=== PATIENT | male | born 1970 | race Two or more races ===

== ENCOUNTER 2020-09-30 07:25 | Inpatient (IN) | payer MEDICAID, OTHER ==
[2020-09-30] VITALS (27 sets, daily range): BP systolic 84–171; BP diastolic 49–105
[~2020-09-30] VITALS: Ht 157.5 cm; Wt 66.8 kg
--- NOTE | 2020-09-30 07:25 | NUR ---
PT [facility]AY [facility] FROM [facility] C/O LOW BP 2 HRS ON TO DIALYSIS. PT IS AAOX3 ROMANIAN SPEAKING ONLY, NOT IN RESPIRATORY DISTRESS, HOOKED TO HASHER OPERATOR, KEPT RESTED AND COMFORTABLE. WILL CONTINUE TO MONITOR.
--- NOTE | 2020-09-30 07:28 | NUR ---
SEEN AND EXAMINED BY .
[2020-09-30] MEDS ORDERED: IV NS 0.9% 1,000 ML BAG IV ONE (07:30)
--- NOTE | 2020-09-30 07:40 | NUR ---
IV LINE ESTABLISHED BLOOD DRAWN AND SENT TO LAB.
--- NOTE | 2020-09-30 07:51 | NUR ---
FLASH WELDING MACHINE OPERATOR AT BEDSIDE FOR XRAY.
[2020-09-30 07:53] LABS: BASOPHILS % (AUTO) 0.2 % (0.0-2.0); HEMATOCRIT 26 % (39-51); HEMOGLOBIN 8.2 g/dL (13.5-17.5); LYMPHOCYTES # (AUTO) 0.8 /CMM (0.8-4.8); LYMPHOCYTES % (AUTO) 5.5 % (20.0-44.0); MEAN CORPUSCULAR HGB CONC 31 g/dl (31.0-36.0); MEAN CORPUSCULAR VOLUME 91 fL (80-96); MONOCYTES # (AUTO) 0.6 /CMM (0.1-1.30); MONOCYTES % (AUTO) 4.3 % (2.0-12.0); NEUTROPHILS # (AUTO) 13.2 /CMM (1.8-8.9); PLATELET COUNT (AUTO) 329 /CMM (150-450); RED BLOOD CELL COUNT(AUTO) 2.91 MIL/uL (4.5-6.0); WHITE BLOOD COUNT (AUTO) 14.6 K/uL (4.3-11.0)
[2020-09-30] MEDS ORDERED: CALC0.253 PO (07:58)
[2020-09-30] MEDS ORDERED: PANT40TA49 PO (07:58)
[2020-09-30] MEDS ORDERED: DOXA4TAB3 PO (07:58)
[2020-09-30] MEDS ORDERED: CALC667C6 PO (07:58)
[2020-09-30] MEDS ORDERED: LOSA50TA39 PO (07:58)
[2020-09-30] MEDS ORDERED: AMLO-213 PO (07:58)
[2020-09-30] MEDS ORDERED: PIOG30TA10 PO (07:58)
[2020-09-30 08:26] LABS: ALANINE AMINOTRANSFERASE 633 U/L (12-78); ALBUMIN 2.5 g/dL (3.4-5.0); ALKALINE PHOSPHATASE 484 U/L (46-116); ASPARTATE AMINOTRANSFERASE 1237 U/L (15-37); BILIRUBIN,TOTAL 1.5 mg/dL (0.2-1.0); CALCIUM, SERUM 9.7 mg/dL (8.5-10.1); CARBON DIOXIDE 21 mmol/L (21-32); CHLORIDE 94 mmol/L (98-107); CREATININE 5.8 mg/dL (0.6-1.3); GLUCOSE 160 mg/dL (74-106); SODIUM SERUM 135 mmol/L (136-145); TOTAL PROTEIN, SERUM 8.9 g/dL (6.4-8.2); UREA NITROGEN, BLOOD 58 mg/dL (7-18)
[2020-09-30] MEDS ORDERED: ONDANSETRON HCL/PF 4 MG/2 ML VIAL ONE (08:33)
--- NOTE | 2020-09-30 08:36 | NUR ---
COVID SPECIMEN OBTAINED AND SENT TO LAB.
--- NOTE | 2020-09-30 08:37 | NUR ---
paged epic for Panel admission
--- NOTE | 2020-09-30 08:45 | NUR ---
DREDGE MECHANIC AT BEDSIDE FOR ULTRASOUND.
[2020-09-30] MEDS ORDERED: IV NS 0.9% 1,000 ML IV ONE (09:00)
[2020-09-30] MEDS ORDERED: VANCOMYCIN 1 GM in IV D5W 250 ML IV ONE (09:00)
[2020-09-30] MEDS ORDERED: ONDANSETRON HCL/PF 4 MG/2 ML VIAL IV ONE (09:00)
[2020-09-30] MEDS ORDERED: PIPERACILLIN /TAZOBACTAM 3.375 G in IV D5W 50 ML IV ONE (09:00)
--- NOTE | 2020-09-30 09:28 | NUR ---
room given [id number]
--- NOTE | 2020-09-30 09:29 | NUR ---
room [id number]
--- NOTE | 2020-09-30 09:29 | NUR ---
CALLED ICU FOR REPORT RN NOT AVAILABLE.
--- NOTE | 2020-09-30 09:50 | NUR ---
REPORT GIVEN TO MELI WHITFIELD FOR TRACEY.
[2020-09-30] MEDS ORDERED: PANTOPRAZOLE 40 MG TABLET.DR PO SCH (10:30)
[2020-09-30] MEDS ORDERED: ONDANSETRON HCL/PF 4 MG/2 ML VIAL IVP PRN (10:30)
[2020-09-30] MEDS: HEPARIN SODIUM, PORCINE 5000 UNITS/1 ML VIAL SQ SCH ×2 (10:30→20:27)
[2020-09-30] MEDS ORDERED: IV NS 0.9% 1,000 ML IV PRN (11:00)
--- NOTE | 2020-09-30 11:00 | NUR ---
Patient's report received from Charge Nurse and patient assessed. Admission assessments done . 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 Patient started on 100 ml/hour IV fluids per Md order
[2020-09-30] MEDS: PANTOPRAZOLE 40 MG VIAL IV SCH (11:18)
--- NOTE | 2020-09-30 11:25 | NUR ---
Patient was taken to OR by staff.Patient in stable condition. Teleb box and 02 used during transfer.
[2020-09-30] MEDS ORDERED: IV SET PRIMARY PUMP SET 1 EA INFUS.SET MC ONE (11:39)
[2020-09-30] MEDS ORDERED: IV NS 0.9% 1,000 ML ONE (11:39)
[2020-09-30] MEDS ORDERED: LIDOCAINE HCL/MPF 1% 30 ML VIAL IJ ONE (12:03)
[2020-09-30] MEDS ORDERED: FENTANYL PF 100MCG/2ML AMPUL ONE (12:21)
[2020-09-30] MEDS ORDERED: VANCOMYCIN 500 MG in IV D5W 100 ML IV PRN (13:00)
--- NOTE | 2020-09-30 13:28 | NUR ---
Patient cameback from Pericardiocentisis. Per report patient had 700 cc of bodily fluid removed and sample sent to lab. Patient assessed and noted with drain . Patient stated he feels better.Vitals recorded. Will continue to monitor.No c/o sob, no s/s of respiratory distress. Addendum: 09/30/20 at 1921 by JOSE SALMERON RN patient had 800 cc of output of pericardial fluid.
[2020-09-30] MEDS ORDERED: DEXTROSE 50%-WATER 50 ML DISP.SYRIN IV PRN (13:30)
--- NOTE | 2020-09-30 13:30 | NUR ---
Received order from Dr chavez to d/c iv fluids . Renal diet resumed per MD Pierre orders.
[2020-09-30] MEDS: CALCIUM ACETATE 667 MG TABLET PO SCH (17:11)
[2020-09-30] MEDS: BLOOD SUGAR DIAGNOSTIC 1 EACH STRIP IN SCH ×2 (17:11→21:46)
[2020-09-30] MEDS: PIPERACILLIN /TAZOBACTAM 2.25 G in IV D5W 50 ML IV SCH (17:11)
[2020-09-30] MEDS: DOXAZOSIN MESYLATE (4 MG) 4 MG TABLET PO SCH (17:12)
[2020-09-30] MEDS: INSULIN REGULAR, HUMAN 100 UNIT/ML 3 ML VIAL SQ PRN ×2 (17:13→21:46)
--- NOTE | 2020-09-30 19:19 | NUR ---
HARMONICA MAKER CLOSING NOTES Patient is alert and oriented, no c/o sob or pain. Breathing even and unlabored. On 02 2liters via nc with 02 sat of 100%. Patient's drain flushed with normal saline during shift. Iv site to right hand and right ac noted and patent with saline lock. Patient ate 100% lunch and 100 % dinner. Endorsed to next shift for TRACEY. Bed is in lowest and locked position. Call light with in reach.
[2020-09-30] MEDS: AMLODIPINE BESYLATE 10 MG TABLET PO SCH (20:25)
[2020-09-30] MEDS: ACETAMINOPHEN 325 MG TABLET PO PRN (20:25)
--- NOTE | 2020-09-30 21:28 | NUR ---
RN NOTE RECEIVED PATIENT IN BED, AWAKE ALERT AND ORIENTED X4. ABLE TO MAKE NEEDS KNOWN. NO SOB OR ANY RESPIRATORY DISTRESS. ON O2 2LPM VIA NASAL CANNULA, O2 SAT 100%. TELE MONITOR ON, HR 100'S. COMPLAINED OF RIGHT ARM PAIN, WILL GIVE DUE PRN PAIN MEDICATION. WITH IV ACCESS ON RIGHT HAND #20 AND RIGHT AC #18 PATENT AND INTACT. NOTED WITH LEFT AV FISTULA, DRESSING DRY AND INTACT. BED LOCKED AND IN LOWEST POSITION. CALL LIGHT WITHIN REACH. WILL CONTINUE TO MONITOR. Addendum: 09/30/20 at 2151 by SELENE CISNEROS RN INFORMED GERALD TAPE MACHINE TAILER REGARDING PERICARDIAL FLUID RESULT-RARE GRAM POSITIVE COCCI, WITH NO NEW ORDERS AT THIS TIME.
--- NOTE | 2020-09-30 21:47 | NUR ---
BLOOD SUGAR 127, NO COVERAGE GIVEN PER MD'S SLIDING SCALE ORDER.
[2020-10-01] VITALS (43 sets, daily range): BP systolic 65–121; BP diastolic 33–77
[2020-10-01] MEDS: PIPERACILLIN /TAZOBACTAM 2.25 G in IV D5W 50 ML IV SCH ×2 (00:18→08:36)
[2020-10-01 04:55] LABS: BASOPHILS % (AUTO) 0.1 % (0.0-2.0); HEMATOCRIT 28 % (39-51); HEMOGLOBIN 8.8 g/dL (13.5-17.5); LYMPHOCYTES # (AUTO) 0.9 /CMM (0.8-4.8); LYMPHOCYTES % (AUTO) 6.7 % (20.0-44.0); MEAN CORPUSCULAR HGB CONC 31 g/dl (31.0-36.0); MEAN CORPUSCULAR VOLUME 92 fL (80-96); MONOCYTES # (AUTO) 0.4 /CMM (0.1-1.30); MONOCYTES % (AUTO) 3.2 % (2.0-12.0); NEUTROPHILS # (AUTO) 11.6 /CMM (1.8-8.9); PLATELET COUNT (AUTO) 331 /CMM (150-450); RED BLOOD CELL COUNT(AUTO) 3.07 MIL/uL (4.5-6.0); WHITE BLOOD COUNT (AUTO) 12.9 K/uL (4.3-11.0)
[2020-10-01 05:35] LABS: ALBUMIN 1.9 g/dL (3.4-5.0); BILIRUBIN,TOTAL 0.9 mg/dL (0.2-1.0); CREATININE 7.1 mg/dL (0.6-1.3); MAGNESIUM 2.1 mg/dL (1.8-2.4); POTASSIUM 4.6 mmol/L (3.5-5.1); TOTAL PROTEIN, SERUM 7.1 g/dL (6.4-8.2)
[2020-10-01 05:38] LABS: ALBUMIN 1.9 g/dL (3.4-5.0); BILIRUBIN,DIRECT 0.6 mg/dL (0.0-0.2); BILIRUBIN,TOTAL 0.9 mg/dL (0.2-1.0); TOTAL PROTEIN, SERUM 7.1 g/dL (6.4-8.2)
[2020-10-01 05:54] LABS: PHOSPHORUS 8.1 mg/dL (2.5-4.9)
--- NOTE | 2020-10-01 06:41 | NUR ---
RN NOTE PATIENT IN BED SLEEPING, EASILY AROUSED. A/OX4. ABLE TO MAKE NEEDS KNOWN. NO SOB. ON O2 2LPM VIA NASAL CANNULA, O2 SAT 97%. WITH IV ACCESS ON RIGHT HAND #20 AND RIGHT AC #18 PATENT AND INTACT. NOTED WITH LEFT AV FISTULA, DRESSING DRY AND INTACT. ALL DUE MEDS GIVEN ORDERED. INFORMED GERALD LINING SETTER OF CRITICAL LAB PHOS 8.1 WITH NO NEW ORDERS AT THIS TIME. BED LOCKED AND IN LOWEST POSITION. CALL LIGHT WITHIN REACH. WILL ENDORSE TO AM SHIFT.
--- NOTE | 2020-10-01 07:00 | NUR ---
RN- ICU 0700- BEDSIDE REPORT TAKEN FROM [facility] NURSE NASH GARRISON. PT AWAKE, ALERT ORIENTED X4, FOLLOWS COMMANDS AND RESTING COMFORTABLE IN BED. PT ON 2L N/C TOLERATING WELL. LUNG SOUNDS CLEAR. PT AFIB ON THE MONITOR HR 90-115, PT AFEBRILE. BOWEL SOUNDS PRESENT, ABD SOFT NONDISTENDED. PT MOVES BUE AND BLE 5/5. SKIN CHECK DONE, SKIN INTACT, NO WOUNDS NOTED. BUE AND BLE PULSES PRESENT. PT CONTINENT, VOIDS IN URINAL. ALL PIV SITES ASSESSED. PT HEP LOCKED. VITALS STABLE. SAFETY MEAURES IN PLACE. NO SIGNS OF ACUTE DISTRESS AT THIS TIME. WILL CONTINUE TO MONITOR. 0754- PT SITTING UP IN BED FEEDING SELF BREAKFAST. PT TOLERATING WELL. NO VISIBLE SIGNS OF ASPIRATION NOTED. WILL CONTINUE TO MONITOR.
[2020-10-01] MEDS: BLOOD SUGAR DIAGNOSTIC 1 EACH STRIP IN SCH ×4 (07:30→21:39)
[2020-10-01] MEDS: PANTOPRAZOLE 40 MG VIAL IV SCH (08:35)
[2020-10-01] MEDS: HEPARIN SODIUM, PORCINE 5000 UNITS/1 ML VIAL SQ SCH ×2 (08:37→20:35)
[2020-10-01] MEDS: CALCITRIOL 0.25 MCG CAPSULE PO SCH (08:37)
[2020-10-01] MEDS: CALCIUM ACETATE 667 MG TABLET PO SCH ×3 (08:37→17:24)
[2020-10-01] MEDS: LOSARTAN POTASSIUM 50 MG TABLET PO SCH (08:38)
[2020-10-01] MEDS: METOPROLOL TARTRATE 25 MG TABLET PO SCH ×3 (10:00→16:59)
[2020-10-01] MEDS: INSULIN REGULAR, HUMAN 100 UNIT/ML 3 ML VIAL SQ PRN ×3 (11:50→21:39)
--- NOTE | 2020-10-01 11:59 | NUR ---
COMPLAINT EVALUATION SUPERVISOR 1158- SPORTS FITNESS AND WELLNESS DIRECTOR AT BEDSIDE DOING STUDY. PT AWAKE, ALERT, ORIENTED AND COOPERATIVE. PT TOLERATING WELL. VITALS STABLE. WILL CONTINUE TO MONITOR.
--- NOTE | 2020-10-01 14:10 | NUR ---
MANAGER ANIMATION 1410- DR AGUILAR MADE AWARE THAT PT HYPOTENSIVE WITH SBP 70-80S SUSTAINED, NEW TELEPHONE ORDER ENTERED FOR 500 ML NS BOLUS X1 PER MD, NO OTHER ORDERS AT THIS TIME. CHARGE NURSE ROSEANN GARRISON AWARE.
--- NOTE | 2020-10-01 14:23 | NUR ---
MAILROOM COORDINATOR 1423- DR DELGADILLO AT BEDSIDE ASSESSING PT AND UPDATED ON PT STATUS. REMOVED ABDOMINAL DRAIN. PT TOLERATED WELL. SITE CLEAN DRY AND INTACT, NO BLEEDING OR OOZING NOTED. WILL CONTINUE TO MONITOR.
[2020-10-01] MEDS ORDERED: IV NS 0.9% 500 ML BAG IV ONE (14:30)
--- NOTE | 2020-10-01 16:47 | NUR ---
PIPE COVERER HELPER 1647- PT BATHED AND CLEANED. SKIN CHECK DONE, NO PRESSURE WOUNDS NOTED. LINEN CHANGE DONE. PT TOLERATED WELL. VITALS STABLE. SAFETY MEASURES IN PLACE. WILL CONTINUE TO MONITOR.
[2020-10-01] MEDS: DOXAZOSIN MESYLATE (4 MG) 4 MG TABLET PO SCH (17:25)
--- NOTE | 2020-10-01 19:14 | NUR ---
STICK WELDER 1913- BEDSIDE REPORT GIVEN TO [facility] NURSE SELENE GARRISON. PT AWAKE, ALERT AND RESTING COMFORTABLE IN BED. PT ON 2 L N/C TOLERATING WELL. ALL LINES TRACED. VITALS STABLE. SAFETY MEASURES IN PLACE. NO SIGNS OF ACUTE DISTRESS AT THIS TIME.
--- NOTE | 2020-10-01 19:24 | NUR ---
RN NOTE RECEIVED PATIENT IN BED, AWAKE ALERT AND ORIENTED X4. ABLE TO MAKE NEEDS KNOWN. NO SOB NOTED. ON O2 2LPM VIA NASAL CANNULA, O2 SAT 96%. TELE MONITOR ON, AFIB CONTROLLED, 100'S. WITH IV ACCESS ON RIGHT HAND #20 AND RIGHT AC #18 PATENT AND INTACT. NOTED WITH LEFT AV FISTULA, DRESSING DRY AND INTACT. BED LOCKED AND IN LOWEST POSITION. CALL LIGHT WITHIN REACH. WILL CONTINUE TO MONITOR.
[2020-10-01] MEDS: AMLODIPINE BESYLATE 10 MG TABLET PO SCH (20:00)
[2020-10-01] MEDS: ACETAMINOPHEN 325 MG TABLET PO PRN (20:32)
--- NOTE | 2020-10-01 20:36 | NUR ---
BLOOD PRESSURE 108/62. NOTIFIED SILVANO MENENDEZ PATIENT WAS HYPOTENSIVE AND RECEIVED NS BOLUS 500 ML IN PREVIOUS SHIFT WITH ORDERS TO HOLD NORVASC MEDICATION AT THIS TIME. WILL CONTINUE TO MONITOR.
--- NOTE | 2020-10-01 21:40 | NUR ---
BLOOD SUGAR 114, NO COVERAGE GIVEN.
[2020-10-02] VITALS (72 sets, daily range): BP systolic 78–154; BP diastolic 49–85
[2020-10-02 04:36] LABS: BASOPHILS % (AUTO) 0.3 % (0.0-2.0); EOSINOPHILS % (AUTO) 0.4 % (0.0-6.0); HEMATOCRIT 27 % (39-51); HEMOGLOBIN 8.7 g/dL (13.5-17.5); LYMPHOCYTES % (AUTO) 8.5 % (20.0-44.0); MEAN CORPUSCULAR HGB CONC 32 g/dl (31.0-36.0); MEAN CORPUSCULAR VOLUME 91 fL (80-96); MONOCYTES # (AUTO) 0.5 /CMM (0.1-1.30); MONOCYTES % (AUTO) 4.2 % (2.0-12.0); NEUTROPHILS # (AUTO) 10.7 /CMM (1.8-8.9); NEUTROPHILS % (AUTO) 86.6 % (43.0-81.0); PLATELET COUNT (AUTO) 374 /CMM (150-450); WHITE BLOOD COUNT (AUTO) 12.3 K/uL (4.3-11.0)
[2020-10-02 04:46] LABS: ALBUMIN 1.7 g/dL (3.4-5.0); BILIRUBIN,DIRECT 0.4 mg/dL (0.0-0.2); BILIRUBIN,TOTAL 0.7 mg/dL (0.2-1.0); CALCIUM, SERUM 8.4 mg/dL (8.5-10.1); POTASSIUM 4.3 mmol/L (3.5-5.1); TOTAL PROTEIN, SERUM 6.6 g/dL (6.4-8.2)
[2020-10-02 04:51] LABS: CREATININE 8.1 mg/dL (0.6-1.3)
--- NOTE | 2020-10-02 06:47 | NUR ---
RN NOTE PATIENT IN BED SLEEPING, EASILY AROUSED. NO SOB NOTED. ON O2 2LPM VIA NASAL CANNULA, O2 SAT 97%. TELE MONITOR ON, AFIB CONTROLLED, 100'S. WITH IV ACCESS ON RIGHT HAND #20 AND RIGHT AC #18 PATENT AND INTACT. ALL NEEDS ATTENDED PROMPTLY. BED LOCKED AND IN LOWEST POSITION. CALL LIGHT WITHIN REACH. WILL ENDORSE TO AM SHIFT.
[2020-10-02] MEDS: BLOOD SUGAR DIAGNOSTIC 1 EACH STRIP IN SCH ×4 (07:53→21:58)
[2020-10-02] MEDS: CALCIUM ACETATE 667 MG TABLET PO SCH ×3 (07:53→17:21)
--- NOTE | 2020-10-02 08:00 | NUR ---
RN NOTES RECEIVED PATIENT IN THE BED A/O X4, ROOM AIR , NO ACUTE RESPIRATORY DISTRESS, WAS COMPLAINING OF PAIN OH MID ABDOMINAL REGION, . HD SHUNT ON LEFT UA AREA INTACT, IV ACCESS ON RIGHT AC AREA INTACT. PATIENT FEELING WEAK, PAIN MID ABDOMINAL REGION 2/10 PAIN SCALE, BS-122 MG/DL. PATIENT ABLE TO TURN AND REPOSTION SELF IN THE BED. WILL MONITORING.
[2020-10-02] MEDS: LOSARTAN POTASSIUM 50 MG TABLET PO SCH (09:00)
[2020-10-02] MEDS: METOPROLOL TARTRATE 25 MG TABLET PO SCH ×3 (09:00→17:41)
--- NOTE | 2020-10-02 09:00 | NUR ---
RN NOTES HELD BP MEDICATION BECAUSE BP - 97/57, P-100. PATIENT TOLERATED BREAKFAST WELL, REFUSED PAIN AT THIS TIME. DUE MEDICATION ADMINISTERED. CALL LIGHT WITHIN TO REACH, WILL MONITORING.
[2020-10-02] MEDS: PANTOPRAZOLE 40 MG VIAL IV SCH (09:14)
[2020-10-02] MEDS: HEPARIN SODIUM, PORCINE 5000 UNITS/1 ML VIAL SQ SCH ×2 (09:17→20:35)
[2020-10-02] MEDS: CALCITRIOL 0.25 MCG CAPSULE PO SCH (09:18)
[2020-10-02] MEDS: INSULIN REGULAR, HUMAN 100 UNIT/ML 3 ML VIAL SQ PRN ×3 (12:02→22:06)
--- NOTE | 2020-10-02 12:45 | NUR ---
RN NOTES BS-153 MG/DL COVERAGE GIVEN, NO ACUTE DISTRESS, REFUSED PAIN, ON O2-2LNC. DUE MEDICATION ADMINISTERED. HELD BP MEDICATION.
--- NOTE | 2020-10-02 13:11 | NUR ---
RN NOTES PATIENT SIGN CONSENT FORM FOR HEMODIALYSIS, AND GETTING STARTED AT THIS TIME.
--- NOTE | 2020-10-02 15:45 | NUR ---
RN NOTES HEMODIALYSIS FINISHED AT THIS TIME OUTPUT WAS 1.6L, PATIENT V/S STABLE BP-114.75, P-100. PATIENT STABLE REFUSED PAIN, WILL TRANSFER TELE UNIT ROOM 328 BED 1.
--- NOTE | 2020-10-02 16:10 | NUR ---
RN NOTES TRANSFERRED PATIENT TO THE TELE UNIT ROOM 311 BED 1. PATIENT A/OX4, NO ACUTE RESPIRATORY DISTRESS, VSS, NO SOB NOTED. PATIENT ON O22LNC. PATIENT REFUSED PAIN. PATIENT TURN AND REPOSTION SELF IN THE BED. IV ACCESS ON RIGHT AC AREA INTACT, HD SHUNT ON LEFT ARM INTACT.BELONGING WITH THE PATIENT. REPORT GIVEN TANK BOTTOM ASSEMBLER CHACE FOLLOW PLAN OF CARE.
[2020-10-02] MEDS: DOXAZOSIN MESYLATE (4 MG) 4 MG TABLET PO SCH (17:38)
[2020-10-02] MEDS: ANCEF 1 GM/50 ML D5W IV SCH (18:01)
--- NOTE | 2020-10-02 19:30 | NUR ---
ORGAN TUNER OPENING NOTES PATIENT IN BED WATCHING TELEVISION. A/OX4. ABLE TO MAKE NEEDS KNOWN. TELE MONITOR IN PLACE READING AFIB 96 BPM. IV ON THE R. AC #18G SL NOTED. NO S/S OF RESPIRATORY DISTRESS. ABLE TO TOLERATE 2LPM OF OXYGEN VIA NC. OLD SCAR ON THE SACRUM NOTED BUT WITH NO OPEN WOUNDS. NO C/O PAIN AT THE MOMENT. SAFETY PRECAUTIONS IN PLACE: BED IN LOWEST LOCKED POSITION, CALL LIGHT WITHIN REACH. WILL CONTINUE TO MONITOR.
[2020-10-02] MEDS: AMLODIPINE BESYLATE 10 MG TABLET PO SCH (20:30)
--- NOTE | 2020-10-02 22:12 | NUR ---
2200 BS- 190. 3 UNITS COVERAGE GIVEN PER SLIDING SCALE.
--- NOTE | 2020-10-02 23:02 | NUR ---
POWERHOUSE ATTENDANT NOTES CLARIFICATION ON THE DIALYSIS SPREADSHEET INTAKE AND OUTPUT: DISREGARD THE @2200 COLUMN.
[2020-10-03] VITALS: BP 117/71
--- NOTE | 2020-10-03 02:24 | NUR ---
MILKER MACHINE NOTES PATIENT TEMP. 100.4. DR. MENENDEZ MADE KNOWN. ORDERED TYLENOL 650 Q4HRS PRN. WILL CARRY OUT AND WILL CONTINUE TO MONITOR PATIENT.
[2020-10-03] MEDS: ACETAMINOPHEN 325 MG TABLET PO PRN ×2 (02:42→18:09)
--- NOTE | 2020-10-03 02:42 | NUR ---
TYLENOL 650 MG PRN GIVEN. WILL REASSESS AND CONTINUE TO MONITOR.
[2020-10-03 04:00] VITALS: BP 110/60
--- NOTE | 2020-10-03 04:37 | NUR ---
RUBBISH COLLECTOR NOTES 0400 VS: BP: 110/60, PULSE 80 BPM, RESP. 18, O2 SAT 96%. TEMPERATURE WENT DOWN FROM 100.4 TO 98.5 AFTER TYLENOL ADMINISTRATION. WILL CONT. TO MONITOR.
[2020-10-03] MEDS: BLOOD SUGAR DIAGNOSTIC 1 EACH STRIP IN SCH ×4 (06:26→22:09)
--- NOTE | 2020-10-03 07:00 | NUR ---
TELERN OPENING NOTES: PATIENT RECEIVED ON BED ALERT AND ORIENTED X 4 ON BED WITH NO SIGNS OF DISTRESS. ON NORMAL BODY ALIGNMENT. ON MODERATE TO HIGH BACK REST. PATIENT WITH LEFT UPPER EXTREMITY av SHUNT FELT THRILL AND POSITIVE FOR BRUIT. PATIENT WITH RIGHT AC IV ACCESS WITH G18 COVERED WITH TEGADERM, DRY AND INTACT. PATIENT DOES NOT COMPLAIN OF ANY PAIN. PATIENT ON CARDIAC MONITORING ON SINUS RHYTHM. COMFORT MEASURES PROVIDED. NEEDS ATTENDED. ON RENAL DIET TOLERATED WELL. PATIENT ON HEMODIALYSIS LAST DONE ON 10/02/2020 AWAITING NEXT HEMODIALYSIS SESSION. NEEDS ATTENDED. PROVIDED WITH CALM AND QUIET ENVIRONMENT. NOT IN DISTRESS.
--- NOTE | 2020-10-03 07:00 | NUR ---
DRAWER UPFITTER CLOSING NOTES PATIENT IN BED. A/OX4. ABLE TO MAKE NEEDS KNOWN. NO S/S OF DISTRESS. TOLERATING 2LPM OF OXYGEN VIA NC. NO C/O OF PAIN YESSY. ALL NEEDS ATTENDED. ALL SCHEDULED MEDS ADMINISTERED. TELE MONITOR READING SR 72BPM. NO SIGNIFICANT CHANGE SINCE LAST SHIFT. SAFETY PRECAUTIONS KEPT IN PLACE THE WHOLE SHIFT: BED IN LOWEST, LOCKED POSITION; CALL LIGHT WITHIN REACH. WILL ENDORSE CARE TO MORNING SHIFT NURSE.
[2020-10-03 07:24] LABS: BASOPHILS # (AUTO) 0.1 /CMM (0.0-0.2); BASOPHILS % (AUTO) 0.4 % (0.0-2.0); EOSINOPHILS % (AUTO) 0.7 % (0.0-6.0); HEMATOCRIT 27 % (39-51); HEMOGLOBIN 8.6 g/dL (13.5-17.5); LYMPHOCYTES # (AUTO) 1.5 /CMM (0.8-4.8); LYMPHOCYTES % (AUTO) 12.6 % (20.0-44.0); MEAN CORPUSCULAR HGB CONC 32 g/dl (31.0-36.0); MEAN CORPUSCULAR VOLUME 92 fL (80-96); MONOCYTES # (AUTO) 0.8 /CMM (0.1-1.30); MONOCYTES % (AUTO) 6.3 % (2.0-12.0); NEUTROPHILS # (AUTO) 9.6 /CMM (1.8-8.9); PLATELET COUNT (AUTO) 379 /CMM (150-450); RED BLOOD CELL COUNT(AUTO) 2.99 MIL/uL (4.5-6.0)
[2020-10-03 07:54] LABS: CALCIUM, SERUM 8.4 mg/dL (8.5-10.1); CREATININE 6.6 mg/dL (0.6-1.3); POTASSIUM 4.2 mmol/L (3.5-5.1)
[2020-10-03] MEDS: CALCIUM ACETATE 667 MG TABLET PO SCH ×3 (08:21→18:08)
[2020-10-03] MEDS: LOSARTAN POTASSIUM 50 MG TABLET PO SCH (09:00)
[2020-10-03] MEDS: METOPROLOL TARTRATE 25 MG TABLET PO SCH ×3 (09:00→17:00)
--- NOTE | 2020-10-03 09:00 | NUR ---
PATIENT ALERT AND ORIENTED WITH NO SIGNS OF DISTRESS. ON MODERATE TO HIGH BACK REST. COMFORT MEASURES PROVIDED. ENCOURAGED TODO DEEP BREATHING EXERCISES. PT ABLE TO TOLERATE FOOD WITHOUT ANY PROBLEM. COMFORT MEASURES PROVIDED. NOT IN DISTRESS.
[2020-10-03] MEDS: CALCITRIOL 0.25 MCG CAPSULE PO SCH (09:24)
[2020-10-03] MEDS: PANTOPRAZOLE 40 MG TABLET.DR PO SCH (09:25)
[2020-10-03] MEDS: HEPARIN SODIUM, PORCINE 5000 UNITS/1 ML VIAL SQ SCH ×2 (09:27→20:49)
[2020-10-03 12:23] LABS: EOSINOPHILS % (MANUAL) 1 % (0-4); LYMPHOCYTES % (MANUAL) 6 % (16-48); METAMYELOCYTES % 1 % (0-0); MONOCYTES % (MANUAL) 7 % (0-11.0); NEUTROPHILS % (MANUAL) 85 (42-76)
[2020-10-03] MEDS: INSULIN REGULAR, HUMAN 100 UNIT/ML 3 ML VIAL SQ PRN ×2 (12:52→18:27)
--- NOTE | 2020-10-03 17:00 | NUR ---
PATIENT'S BP 105/60 - BP MEDICATION METOPROLOL HELD INDICATED. HEALTH TEACHING DONE RAGARDING MEDICATION. PATIENT VERBALIZED UNDERSTANDING AND APPRECIATION. NOT IN DISTRESS.
[2020-10-03] MEDS: DOXAZOSIN MESYLATE (4 MG) 4 MG TABLET PO SCH (18:09)
--- NOTE | 2020-10-03 18:10 | NUR ---
PT C/O ACHING THROBBING RIGHT SHOULDER PAIN OF 3/10. PT NOTED WITH FACIAL GRIMACE. VS 105/60, HR 79, RR 18, T 98.8, SPO2 94 ON 2LPM VIA NC. PER PT REQUEST,TYLENOL 650MG PO Q4HR PRN FOR PAIN ADMINISTERED AT THIS TIME. WILL CONTINUE TO MONITOR
[2020-10-03] MEDS: ANCEF 1 GM/50 ML D5W IV SCH (18:23)
--- NOTE | 2020-10-03 18:42 | NUR ---
PT NOTED WITH DISLODGED IV AT THIS TIME, PRESSURE APPLIED, SECURED WITH GAUZE AND TAPE. NO S/ BLEEDING OR INFILTRATION NOTED.
--- NOTE | 2020-10-03 18:46 | NUR ---
MS RN CLOSING NOTES PT AWAKE IN BED AT THIS TIME. PT REMAINED STABLE THROUGHOUT SHIFT. ALL CARE, NEEDS, MEDICATIONS AND TREATMENT ADMINISTERED ANTICIPATED PER ORDER. PT KEPT CLEAN AND DRY. PAIN MANAGEMENT ADMINISTERED PER ORDER. SAFETY PRECAUTIONS IN PLACE AND MAINTAINED AT ALL TIMES. BED IN LOWEST LOCKED POSITION, HOB ELEVATED, SIDE RAILS UPX2, CALL LIGHT AND TABLE WITHIN REACH. WILL ENDORSE TO LANGUAGE TRANSLATOR NURSE FOR TRACEY
--- NOTE | 2020-10-03 18:46 | NUR ---
IV ACCESS INSERTED IN RIGHT WRIST G22 AT THIS TIME. GOOD BLOOD RETURN NOTED. IV INTACT, PATENT AND FLUSHING WELL. PATIENT TOLERATED WELL. WILL CONTINUE MONITORING.
--- NOTE | 2020-10-03 19:15 | NUR ---
MS RN OPENING NOTE PATIENT IN BED SLEEPING, EASILY AROUSED. A/O X 4. PATIENT DOES NOT COMPLAIN OF ANY PAIN OR DISCOMFORT AT THIS TIME. BREATHING EVEN AND UNLABORED. NO SOB PRESENT. PATIENT CURRENTLY ON 2 L OF OXYGEN SUPPLEMENT VIA NC. PATIENT'S IV ACCESS INTACT AND PATENT. SAFETY PRECAUTIONS IN PLACE: HOB ELEVATED, BED IN OCKED AND LOWEST POSITION, SIDE RAILS UP, WALKER AT BEDSIDE, CALL LIGHT WITHIN REACH. WILL MONITOR PATIENT CLOSELY.
[2020-10-03 20:00] VITALS: BP 112/66
[2020-10-03] MEDS: AMLODIPINE BESYLATE 10 MG TABLET PO SCH (20:47)
--- NOTE | 2020-10-03 22:00 | NUR ---
MS RN NOTE BLOOD SUGAR 87 MG/DL, NO COVERAGE. CRANBERRY JUICE GIVEN, REQUESTED BY PT.
[2020-10-04 06:48] LABS: BASOPHILS % (AUTO) 0.3 % (0.0-2.0); EOSINOPHILS % (AUTO) 1.4 % (0.0-6.0); HEMATOCRIT 26 % (39-51); HEMOGLOBIN 8.2 g/dL (13.5-17.5); LYMPHOCYTES # (AUTO) 1.7 /CMM (0.8-4.8); LYMPHOCYTES % (AUTO) 13.8 % (20.0-44.0); MEAN CORPUSCULAR HGB CONC 31 g/dl (31.0-36.0); MEAN CORPUSCULAR VOLUME 92 fL (80-96); MONOCYTES # (AUTO) 1.1 /CMM (0.1-1.30); MONOCYTES % (AUTO) 8.9 % (2.0-12.0); NEUTROPHILS # (AUTO) 9.6 /CMM (1.8-8.9); NEUTROPHILS % (AUTO) 75.6 % (43.0-81.0); PLATELET COUNT (AUTO) 372 /CMM (150-450); RED BLOOD CELL COUNT(AUTO) 2.85 MIL/uL (4.5-6.0); WHITE BLOOD COUNT (AUTO) 12.6 K/uL (4.3-11.0)
--- NOTE | 2020-10-04 06:57 | NUR ---
MS RN CLOSING NOTE PATIENT IN BED RESTING, EASILY AROUSED. A/O X 4. PATIENT DOES NOT COMPLAIN OF ANY PAIN OR DISCOMFORT AT THIS TIME. BREATHING EVEN AND UNLABORED. NO SOB PRESENT. PATIENT TOLERATING 2 L OF OXYGEN SUPPLEMENTATION VIA NC, WITH O2 SATURATION OF 96%. PATIENT'S IV ACCESS INTACT AND PATENT. SAFETY PRECAUTIONS MAINTAINED: HOB ELEVATED, BED IN LOCKED AND LOWEST POSITION, SIDE RAILS UP, WALKER AT BEDSIDE, CALL LIGHT WITHIN REACH. ALL NEEDS MET AND ATTENDED, ALL ROUTINE MEDICATIONS GIVEN. WILL ENDORSE TO DAY SHIFT NURSE FOR TRACEY.
[2020-10-04 07:08] LABS: ALBUMIN 1.8 g/dL (3.4-5.0); BILIRUBIN,DIRECT 0.4 mg/dL (0.0-0.2); BILIRUBIN,TOTAL 0.8 mg/dL (0.2-1.0); TOTAL PROTEIN, SERUM 6.8 g/dL (6.4-8.2)
--- NOTE | 2020-10-04 07:09 | NUR ---
MS RN OPENING NOTES RECEIVED PT AWAKE IN BED AT THIS TIME. AOX4. CITIZEN OF [place] SPEAKING. NO SOB NOTED, NO C/O PAIN AT THIS TIME, NO S/O OF ANY APPARENT DISTRESS NOTED. PT NOTED ON 2LPM OXYGEN VIA NC. IV ACCESS NOTED IN TIGHT WRIST GAUGE #22, INTACT, PATENT AND FLUSHING WELL. PT NOTED WITH SUDARSHAN AV SHUNT, AUSCULTATED A BRUIT AND FELT A THRILL. ASPIRATION AND SAFETY PRECAUTIONS IN PLACE AND MAINTAINED AT ALL TIMES. BED IN LOWEST LOCKED POSITION, HOB ELEVATED, SIDE RAILS UP X2, CALL LIGHT AND TABLE WITHIN REACH. WILL CONTINUE TO MONITOR
[2020-10-04 07:11] LABS: CALCIUM, SERUM 8.6 mg/dL (8.5-10.1); PHOSPHORUS 5.6 mg/dL (2.5-4.9); POTASSIUM 4.7 mmol/L (3.5-5.1)
[2020-10-04 07:14] LABS: CREATININE 8.2 mg/dL (0.6-1.3)
--- NOTE | 2020-10-04 07:30 | NUR ---
CRITIACL LAB RESULT FOR BUN 87 AND CREATININE 8.2 REPORTED AT THIS TIME BY SURENDRA PEWTER FINISHER TO CYNTHIA JURADO. REPORT READ BACK. CHACE, CHARGE NURSE AND DR DYER MADE AWARE. NO NEW ORDERS AT THIS TIME. WILL CONTINUE TO MONITOR.
[2020-10-04 08:00] VITALS: BP 119/72
[2020-10-04] MEDS: BLOOD SUGAR DIAGNOSTIC 1 EACH STRIP IN SCH ×4 (08:19→21:14)
[2020-10-04] MEDS: INSULIN REGULAR, HUMAN 100 UNIT/ML 3 ML VIAL SQ PRN ×4 (08:27→21:08)
[2020-10-04] MEDS: METOPROLOL TARTRATE 25 MG TABLET PO SCH ×2 (08:28→13:17)
[2020-10-04] MEDS: CALCIUM ACETATE 667 MG TABLET PO SCH ×3 (08:28→17:43)
[2020-10-04] MEDS: LOSARTAN POTASSIUM 50 MG TABLET PO SCH (08:29)
[2020-10-04] MEDS: ACETAMINOPHEN 325 MG TABLET PO PRN (08:29)
[2020-10-04] MEDS: CALCITRIOL 0.25 MCG CAPSULE PO SCH (08:29)
[2020-10-04] MEDS: PANTOPRAZOLE 40 MG TABLET.DR PO SCH (08:29)
--- NOTE | 2020-10-04 08:30 | NUR ---
PT C/O DULL THROBBING ABDOMINAL PAIN OF 3/10. PT NOTED GRASPING. VS 119/72, HR 74, RR 18, T 98.4, SPO2 96 ON 2LPM OXYGEN VIA NC. PER PT REQUEST,TYLENOL 650MG PO Q4HR PRN FOR PAIN ADMINISTERED AT THIS TIME. WILL CONTINUE TO MONITOR
[2020-10-04] MEDS: HEPARIN SODIUM, PORCINE 5000 UNITS/1 ML VIAL SQ SCH ×2 (08:38→21:06)
[2020-10-04 10:47] LABS: BAND % (MANUAL) 2 % (0.0-5.0); LYMPHOCYTES % (MANUAL) 12 % (16-48); MONOCYTES % (MANUAL) 9 % (0-11.0); NEUTROPHILS % (MANUAL) 77 (42-76)
[2020-10-04] MEDS: ANCEF 1 GM/50 ML D5W IV SCH (13:33)
[2020-10-04 16:00] VITALS: BP 121/66
[2020-10-04] MEDS: DOXAZOSIN MESYLATE (4 MG) 4 MG TABLET PO SCH (17:44)
--- NOTE | 2020-10-04 18:36 | NUR ---
MS RN CLOSING NOTES PT AWAKE IN BED AT THIS TIME. PT's CONDITION REMAINED UNCHANGED THROUGHOUT SHIFT. ALL CARE, NEEDS, MEDICATIONS AND TREATMENT ADMINISTERED ANTICIPATED PER ORDER. PT KEPT CLEAN AND DRY. PAIN MANAGEMENT ADMINISTERED PER ORDER. SAFETY PRECAUTIONS IN PLACE AND MAINTAINED AT ALL TIMES. BED IN LOWEST LOCKED POSITION, HOB ELEVATED, SIDE RAILS UPX2, CALL LIGHT AND TABLE WITHIN REACH. WILL ENDORSE TO INSIDE PHONE SALES NURSE FOR TRACEY
[2020-10-04 20:00] VITALS: BP 128/65
--- NOTE | 2020-10-04 20:16 | NUR ---
MS/TELE/RN DURING INITIAL SHIFT ROUNDING, FOUND PATIENT LYING IN BED AWAKE, ALERT, ORIENTED, COMFORTABLE, NO C/O PAIN, NO DISTRESS NOTED, CALL LIGHT IN REACH, FALL PRECAUTIONS PER PROTOCOL, WILL MONITOR.
[2020-10-04] MEDS: AMLODIPINE BESYLATE 10 MG TABLET PO SCH (21:05)
[2020-10-05] MEDS: ANCEF 1 GM/50 ML D5W IV SCH ×2 (01:03→13:02)
--- NOTE | 2020-10-05 06:03 | NUR ---
MS/TELE/RN PATIENT STILL SLEEPING AT THIS TIME, APPEAR COMFORTABLE, NO SIGNS OF DISTRESS NOTED, CALL LIGHT IN REACH, ALL NEEDS ATTENDED AT THIS TIME, WILL CONTINUE TO MONITOR.
--- NOTE | 2020-10-05 07:36 | NUR ---
MS/RN OPENING NOTES RECEIVED PATIENT IS ON BED AWAKE ALERT AND ORIENTED X4. PATIENT IS ON 2 L OXYGEN VIA NASAL CANNULA SATURATION 92%. PATIENT IN NO APPARENT RESPIRATORY DISTRESS NOTED. NO COMPLAINED OF PAIN NOTED AT THIS TIME. WILL CONTINUE TO MONITOR.
[2020-10-05] MEDS: BLOOD SUGAR DIAGNOSTIC 1 EACH STRIP IN SCH ×4 (07:51→22:22)
[2020-10-05 08:00] VITALS: BP 114/66
[2020-10-05] MEDS: CALCIUM ACETATE 667 MG TABLET PO SCH ×3 (08:49→17:26)
[2020-10-05] MEDS: LOSARTAN POTASSIUM 50 MG TABLET PO SCH (08:50)
--- NOTE | 2020-10-05 08:50 | NUR ---
MS/RN NOTES BP 114/66 75 LOSARTAN 100MG 2TAB PO NOT GIVEN. WILL CONTINUE TO MONITOR.
[2020-10-05] MEDS: METOPROLOL TARTRATE 25 MG TABLET PO SCH ×2 (08:54→17:00)
--- NOTE | 2020-10-05 08:55 | NUR ---
MS/RN NOTES BP 114/66 P 75 LOSARTAN 100MG 2TAB PO AND METOPROLOL 50MG 2 TAB PO NOT GIVEN. WILL CONTINUE TO MONITOR.
[2020-10-05] MEDS: PANTOPRAZOLE 40 MG TABLET.DR PO SCH (08:58)
[2020-10-05] MEDS: CALCITRIOL 0.25 MCG CAPSULE PO SCH (08:58)
[2020-10-05] MEDS: HEPARIN SODIUM, PORCINE 5000 UNITS/1 ML VIAL SQ SCH ×2 (09:01→22:29)
[2020-10-05 11:06] LABS: CALCIUM, SERUM 8.4 mg/dL (8.5-10.1); CREATININE 6.8 mg/dL (0.6-1.3); POTASSIUM 4.5 mmol/L (3.5-5.1)
[2020-10-05] MEDS: INSULIN REGULAR, HUMAN 100 UNIT/ML 3 ML VIAL SQ PRN ×2 (12:19→17:21)
[2020-10-05 16:00] VITALS: BP 113/66
[2020-10-05] MEDS: DOXAZOSIN MESYLATE (4 MG) 4 MG TABLET PO SCH (17:28)
--- NOTE | 2020-10-05 17:28 | NUR ---
MS/RN NOTES DOXAZOSIN 4MG WITHHELD DUE TO BLOOD PRESSURE OF 113/66 MMHG,. WILL CONTINUE TO MONITOR.
--- NOTE | 2020-10-05 18:43 | NUR ---
MS/RN CLOSING NOTES PATIENT IS ON BED ALERT AND ORIENTED X4. PATIENT IN ROOM AIR SATURATION 92%. PATIENT IN NO APPARENT RESPIRATORY DISTRESS NOTED. NO COMPLAINED OF PAIN AT THIS TIME. IV ACCESS AT RIGHT WRIST # 22 G PATENT AND INTACT. SEEN AND EXAMINED BY MD WITH ORDERS MADE AND CARRIED OUT. ALL DUE MEDICATIONS WAS GIVEN. SAFETY PRECAUTIONS WAS IN PLACED. BED IN LOWEST POSITION AND LOCKED. SIDERAILS UP X2. CALL LIGHT WITHIN REACH. WILL ENDORSED TO BEAM DYER FOR TRACEY.
--- NOTE | 2020-10-05 19:38 | NUR ---
MS/TELE/RN RECEIVED PATIENT LYING IN BED AWAKE, ALERT, ORIENTED, COMFORTABLE, NO C/O PAIN, NO DISTRESS NOTED, CALL LIGHT IN REACH, WILL MONITOR.
[2020-10-05 20:00] VITALS: BP 109/78
[2020-10-05] MEDS: AMLODIPINE BESYLATE 10 MG TABLET PO SCH (22:27)
[2020-10-06] MEDS: ANCEF 1 GM/50 ML D5W IV SCH ×2 (01:06→12:31)
--- NOTE | 2020-10-06 02:14 | NUR ---
MS/TELE/RN PATIENT IS SLEEPING AT THIS TIME, APPEAR COMFORTABLE, NO DISTRESS NOTED, CALL LIGHT IN REACH, WILL CONTIINUE TO MONITOR.
[2020-10-06 06:39] LABS: BASOPHILS # (AUTO) 0.1 /CMM (0.0-0.2); BASOPHILS % (AUTO) 0.7 % (0.0-2.0); EOSINOPHILS % (AUTO) 1.7 % (0.0-6.0); HEMATOCRIT 24 % (39-51); HEMOGLOBIN 7.5 g/dL (13.5-17.5); LYMPHOCYTES # (AUTO) 1.6 /CMM (0.8-4.8); LYMPHOCYTES % (AUTO) 12.4 % (20.0-44.0); MEAN CORPUSCULAR HGB CONC 31 g/dl (31.0-36.0); MEAN CORPUSCULAR VOLUME 93 fL (80-96); MONOCYTES # (AUTO) 1.1 /CMM (0.1-1.30); MONOCYTES % (AUTO) 8.5 % (2.0-12.0); NEUTROPHILS # (AUTO) 9.7 /CMM (1.8-8.9); NEUTROPHILS % (AUTO) 76.7 % (43.0-81.0); PLATELET COUNT (AUTO) 373 /CMM (150-450); RED BLOOD CELL COUNT(AUTO) 2.57 MIL/uL (4.5-6.0); WHITE BLOOD COUNT (AUTO) 12.7 K/uL (4.3-11.0)
[2020-10-06] MEDS: BLOOD SUGAR DIAGNOSTIC 1 EACH STRIP IN SCH ×4 (07:20→22:14)
--- NOTE | 2020-10-06 07:37 | NUR ---
MS/TELE/RN PATIENT IS AWAKE, ALERT, ORIENTED, COMFORTABLE, NO C/O PAIN, NO DISTRESS NOTED, ALL NEEDS ATTENDED AT THIS TIME, ENDORSED TO MELI RIVERA FOR CONTINUITY OF CARE.
--- NOTE | 2020-10-06 07:40 | NUR ---
MS/RN OPENING NOTES RECEIVED PATIENT IS ON BED AWAKE ALERT AND ORIENTED X4. PATIENT IS ON ROOM AIR SATURATION 92%. PATIENT IN NO APPARENT RESPIRATORY DISTRESS NOTED. NO COMPLAINED OF PAIN NOTED AT THIS TIME. WILL CONTINUE TO MONITOR.
[2020-10-06 08:00] VITALS: BP 127/71
[2020-10-06] MEDS: LOSARTAN POTASSIUM 50 MG TABLET PO SCH (09:00)
[2020-10-06] MEDS: METOPROLOL TARTRATE 25 MG TABLET PO SCH ×2 (09:00→17:00)
[2020-10-06] MEDS: HEPARIN SODIUM, PORCINE 5000 UNITS/1 ML VIAL SQ SCH ×2 (09:00→20:47)
[2020-10-06] MEDS: CALCIUM ACETATE 667 MG TABLET PO SCH ×3 (09:13→17:32)
[2020-10-06] MEDS: CALCITRIOL 0.25 MCG CAPSULE PO SCH (09:13)
[2020-10-06] MEDS: PANTOPRAZOLE 40 MG TABLET.DR PO SCH (09:15)
[2020-10-06] MEDS: ACETAMINOPHEN 325 MG TABLET PO PRN (09:34)
[2020-10-06 10:19] LABS: EOSINOPHILS % (MANUAL) 2 % (0-4); LYMPHOCYTES % (MANUAL) 15 % (16-48); MONOCYTES % (MANUAL) 4 % (0-11.0); MYELOCYTES % 1 % (0-0); NEUTROPHILS % (MANUAL) 78 (42-76)
[2020-10-06] MEDS: INSULIN REGULAR, HUMAN 100 UNIT/ML 3 ML VIAL SQ PRN (12:28)
[2020-10-06 15:52] VITALS: BP 125/70
[2020-10-06] MEDS: DOXAZOSIN MESYLATE (4 MG) 4 MG TABLET PO SCH (17:32)
--- NOTE | 2020-10-06 17:32 | NUR ---
MS/RN NOTES BP 125/70 P 74 PATIENT IS ON DIALYSIS METOPROLOL 25MG 2 TABS CARDURA 4MG 1 TAB WAS WITH HELD. PATIENT IS ON GOING HEMODIALYSIS.
--- NOTE | 2020-10-06 18:44 | NUR ---
MS/RN CLOSING NOTES PATIENT IS ON BED ALERT AND ORIENTED X4. PATIENT IN ROOM AIR SATURATION 93%. PATIENT IN NO APPARENT RESPIRATORY DISTRESS NOTED. NO COMPLAINED OF PAIN AT THIS TIME. IV ACCESS AT RIGHT WRIST # 22 G PATENT AND INTACT. SEEN AND EXAMINED BY MD WITH ORDERS MADE AND CARRIED OUT. ALL DUE MEDICATIONS WAS GIVEN. SAFETY PRECAUTIONS WAS IN PLACED. BED IN LOWEST POSITION AND LOCKED. SIDERAILS UP X2. CALL LIGHT WITHIN REACH. PATIENT HAD HEMODIALYSIS DONE TODAY 2 L OUTPUT. WILL ENDORSED TO AIRCRAFT MECHANIC STRUCTURES FOR TRACEY.
--- NOTE | 2020-10-06 19:30 | NUR ---
MS/RN OPENING NOTES RECEIVED PATIENT IN BED RESTING. PATIENT IS ALERT AND ORIENTED X 4. PATIENT BREATHING IS EVEN AND NONLABORED. PATIENT SHOWS NO SIGNS OF SOB OR RESPIRATORY DISTRESS. PATIENT STATES NO PAIN AT THIS TIME. PATIENT IV ACCESS INTACT FLUSHING WELL. SAFETY MEASURES ARE IN PLACE, BED IS LOCKED AND PLACED IN THE LOW POSITION, SIDE RAILS UP X 2, CALL LIGHT IS WITHIN REACH. WILL CONTINUE WITH PATIENT PLAN OF CARE.
[2020-10-06 20:00] VITALS: BP 129/68
[2020-10-06] MEDS: AMLODIPINE BESYLATE 10 MG TABLET PO SCH (20:46)
[2020-10-07] MEDS: ANCEF 1 GM/50 ML D5W IV SCH ×2 (01:00→13:11)
[2020-10-07] MEDS: BLOOD SUGAR DIAGNOSTIC 1 EACH STRIP IN SCH ×2 (06:35→12:52)
--- NOTE | 2020-10-07 06:40 | NUR ---
MS/RN CLOSING NOTES PATIENT IN BED RESTING. PATIENT IS ALERT AND ORIENTED X 4. PATIENT BREATHING IS EVEN AND NONLABORED. PATIENT SHOWS NO SIGNS OF SOB OR RESPIRATORY DISTRESS. PATIENT STATES NO PAIN AT THIS TIME. PATIENT IV ACCESS INTACT FLUSHING WELL. ALL NEEDS HAVE BEEN MET DURING SHIFT. SAFETY MEASURES ARE IN PLACE, BED IS LOCKED AND PLACED IN THE LOW POSITION, SIDE RAILS UP X 2, CALL LIGHT IS WITHIN REACH. WILL ENDORSE CARE TO DAY SHIFT NURSE.
[2020-10-07 08:00] VITALS: BP 128/72
[2020-10-07] MEDS: CALCITRIOL 0.25 MCG CAPSULE PO SCH (09:59)
[2020-10-07] MEDS: PANTOPRAZOLE 40 MG TABLET.DR PO SCH (10:00)
[2020-10-07] MEDS: METOPROLOL TARTRATE 25 MG TABLET PO SCH (10:00)
[2020-10-07] MEDS: HEPARIN SODIUM, PORCINE 5000 UNITS/1 ML VIAL SQ SCH (10:01)
[2020-10-07 10:06] VITALS: BP 129/72
[2020-10-07] MEDS: LOSARTAN POTASSIUM 50 MG TABLET PO SCH (10:06)
[2020-10-07] MEDS: CALCIUM ACETATE 667 MG TABLET PO SCH ×2 (10:07→13:11)
--- NOTE | 2020-10-07 15:48 | NUR ---
MS RN OPENING NOTE PATIENT IS IN BED RESTING, PATIENT IS IN NO ACUTE DISTRESS. PATIENT IS ON ROOM AIR, TOLERATING WELL, NO SOB NOTED. SAFETY PRECAUTIONS ARE ON, BED IS LOCKED IN THE LOWEST POSITION, SIDE RAILS ARE UP, CALL LIGHT WITHIN REACH. WILL CONTINUE TO MONITOR CLOSELY.
--- NOTE | 2020-10-07 15:48 | NUR ---
MS ADULT SERVICES LIBRARIAN NOTE PATIENT IS IN NO ACUTE DISTRESS. PATIENT IS MEDICALLY STABLE TO BE DISCHARGED. PATIENTS NEEDS WERE ADDRESSED DURING THE STAY. DISCHARGED EDUCATION PROVIDED. PATIENT VERBALIZED UNDERSTANDING. PATIENT SKIN IS INTACT. BELONGING LIST SIGNED. PATIENTS IV LINE AND ID BAND REMOVED. PATIENT WAS PICKED UP BY HIS DAUGHTER. MS IS AWARE OF DISCHARGE.
== END 2020-10-07 15:45 | disposition home or self-care (01) | DRG 720 ==
LOC: ER 07:27 → ICU 09:30 → TELE 10-02 16:29 → MED 10-03 10:47
PROVIDERS: ADMIT Nurse Practitioner Family; ATTEND Internal Medicine
PROC: 0W9D30Z Drainage of Pericardial Cavity with Drainage Device, Percutaneous Approach (ICD-10-PCS; principal; 2020-09-30)
PROC: 5A1D70Z Performance of Urinary Filtration, Intermittent, Less than 6 Hours Per Day (ICD-10-PCS; 2020-10-02)
DX: A41.89 Other specified sepsis (principal); K72.00 Acute and subacute hepatic failure without coma; E87.2 Acidosis; J90 Pleural effusion, not elsewhere classified; I12.0 Hypertensive chronic kidney disease with stage 5 chronic kidney disease or end stage renal disease; E11.22 Type 2 diabetes mellitus with diabetic chronic kidney disease; I31.3 Pericardial effusion (noninflammatory); E87.1 Hypo-osmolality and hyponatremia; I48.0 Paroxysmal atrial fibrillation; N18.6 End stage renal disease; Z99.2 Dependence on renal dialysis; K80.20 Calculus of gallbladder without cholecystitis without obstruction; Z20.822 Contact with and (suspected) exposure to COVID-19; R65.20 Severe sepsis without septic shock; Z83.3 Family history of diabetes mellitus; Z79.899 Other long term (current) drug therapy; E04.1 Nontoxic single thyroid nodule; J98.11 Atelectasis; N27.0 Small kidney, unilateral; Z79.84 Long term (current) use of oral hypoglycemic drugs; N32.89 Other specified disorders of bladder; D63.8 Anemia in other chronic diseases classified elsewhere; I31.9 Disease of pericardium, unspecified
CPT/HCPCS: 33010; 36415; 70450-TC; 71045-TC; 71250-TC; 76705-TC; 80048-TC; 80053-TC; 80061-TC; 80076-TC; 80202-TC; 82962-TC; 83605-TC; 83690-TC; 83735-TC; 84100-TC; 84484-TC; 85025-TC; 85730-TC; 86480; 86706; 87040-TC; 87070-TC; 87081-TC; 87116; 87206; 87340; 88108-TC; 88305-TC; 89051-TC; 90935-TC; 93307-TC; 93308-TC; 94799-TC; C1894; C9113; C9803; G0378; J0690; J1644; J1815; J2405; J2543; J3010; J3370; J3490; J7030; J7040; J7050; J7060

== ENCOUNTER 2021-07-07 09:14 | Inpatient (IN) | payer MEDICARE, OTHER ==
[~2021-07-07] VITALS: Ht 157.5 cm; Wt 62.6 kg
[~2021-07-07 09:14] MED LIST: AMLO-213 PO; CALC0.253 PO; CALC667C6 PO; DOXA4TAB3 PO; LOSA50TA39 PO; PANT40TA49 PO; PIOG30TA10 PO
--- NOTE | 2021-07-07 09:22 | NUR ---
BIB RA 78 FROM HOME,C/O BACK PAIN AFTER FALLBIB RA 39 FROM DIALYSIS CENTER, C/O CHEST PAIN AFTER COMPLETING TREATMENT,ING DOWN FROM HIS BED ASA 324 MG AND NTG X 1 GIVEN. PAIN DOES NOT RADIATE. PT DENIES NAUSEA AND VOMITTING AT THIS TIME. MD AT BEDSIDE.
[2021-07-07] MEDS ORDERED: NIFE60TA73 PO (09:26)
[2021-07-07] MEDS ORDERED: MEGE40TA5 PO (09:26)
[2021-07-07] MEDS ORDERED: LINA5TAB PO (09:26)
--- NOTE | 2021-07-07 09:26 | NUR ---
IV ESTABLISHED R AC 20G, LABS DRAWN AND COLLECTED.
[2021-07-07] MEDS ORDERED: HYDR100T27 PO (09:27)
[2021-07-07] MEDS ORDERED: LABE100T5 PO (09:29)
[2021-07-07 10:00] LABS: ALBUMIN 3.4 g/dL (3.4-5.0); BILIRUBIN,DIRECT 0.2 mg/dL (0.0-0.2); BILIRUBIN,TOTAL 0.9 mg/dL (0.2-1.0); CALCIUM, SERUM 9.6 mg/dL (8.5-10.1); CREATININE 3.7 mg/dL (0.6-1.3); POTASSIUM 3.9 mmol/L (3.5-5.1); TOTAL PROTEIN, SERUM 9.2 g/dL (6.4-8.2)
[2021-07-07 10:08] LABS: BASOPHILS # (AUTO) 0.1 K/uL (0.0-0.2); BASOPHILS % (AUTO) 1.9 % (0.0-2.0); EOSINOPHILS % (AUTO) 10.4 % (0.0-6.0); HEMATOCRIT 47 % (39-51); HEMOGLOBIN 15.4 g/dL (13.5-17.5); LYMPHOCYTES # (AUTO) 1.2 K/uL (0.8-4.8); LYMPHOCYTES % (AUTO) 28.7 % (20.0-44.0); MEAN CORPUSCULAR HGB CONC 33 g/dl (31.0-36.0); MEAN CORPUSCULAR VOLUME 100 fL (80-96); MONOCYTES # (AUTO) 0.3 K/uL (0.1-1.30); MONOCYTES % (AUTO) 8.2 % (2.0-12.0); NEUTROPHILS # (AUTO) 2.1 K/uL (1.8-8.9); NEUTROPHILS % (AUTO) 50.8 % (43.0-81.0); PLATELET COUNT (AUTO) 111 K/uL (150-450); RED BLOOD CELL COUNT(AUTO) 4.65 MIL/uL (4.5-6.0)
[2021-07-07] MEDS ORDERED: ONDANSETRON HCL/PF 4 MG/2 ML VIAL ONE (10:25)
[2021-07-07] MEDS ORDERED: ONDANSETRON HCL/PF - ER 4 MG/2 ML VIAL IV ONE (10:30)
--- NOTE | 2021-07-07 11:15 | NUR ---
CALLED DR. GABRIEL [phone]
[2021-07-07] MEDS ORDERED: ONDANSETRON HCL/PF 4 MG/2 ML VIAL IVP PRN (12:30)
[2021-07-07] MEDS ORDERED: Z GUARD REMEDY 4 OZ OINT TP PRN (12:30)
[2021-07-07] MEDS ORDERED: DEXTROSE 50%-WATER 50 ML DISP.SYRIN IV PRN (12:30)
[2021-07-07] MEDS ORDERED: MAG HYDROX/AL HYDROX/SIMETH 30 ML UDC PO PRN (12:30)
[2021-07-07] MEDS ORDERED: ZOLPIDEM TARTRATE 5 MG TABLET PO PRN (12:30)
[2021-07-07] MEDS ORDERED: MAGNESIUM HYDROXIDE 30 ML UDC PO PRN (12:30)
[2021-07-07] MEDS ORDERED: ACETAMINOPHEN 325 MG TABLET PO PRN (12:30)
[2021-07-07] MEDS: CALCIUM ACETATE 667 MG CAP/TAB PO SCH ×2 (14:01→18:48)
[2021-07-07] MEDS: hydrALAZINE HCL 50 MG TABLET PO SCH ×2 (14:01→17:13)
--- NOTE | 2021-07-07 14:57 | NUR ---
PT RESTING COMFORTABLY IN BED, EASY TO AROUSE
[2021-07-07] MEDS: BLOOD SUGAR DIAGNOSTIC 1 EACH STRIP IN SCH ×2 (17:13→22:40)
[2021-07-07] MEDS: LABETALOL HCL (100MG) 100 MG TABLET PO SCH (17:13)
[2021-07-07] MEDS: CEFTRIAXONE 1 G in IV D5W 50 ML IV SCH (17:13)
[2021-07-07] MEDS ORDERED: LABETALOL HCL (100MG) 100 MG TABLET ONE (17:21)
[2021-07-07] MEDS ORDERED: hydrALAZINE HCL IV 20 MG VIAL IV ONE (18:00)
[2021-07-07] MEDS ORDERED: hydrALAZINE HCL IV 20 MG VIAL ONE (18:01)
--- NOTE | 2021-07-07 18:45 | NUR ---
GOT BED 314-1 AFTER CHANGE OF SHIFT.
[2021-07-07] MEDS: DOXAZOSIN MESYLATE (4 MG) 4 MG TABLET PO SCH (18:48)
--- NOTE | 2021-07-07 19:30 | NUR ---
REPORT GIVEN TO ENOC FOR TRACEY
--- NOTE | 2021-07-07 19:59 | NUR ---
TRANSFERRED TO [facility] UNDER ACLS
--- NOTE | 2021-07-07 20:00 | NUR ---
TELERN RECEIVED FROM ER A 50 Y/O MALE WITH CC OF CP POST HD TODAY. ALERT/ORIENTED X4 CITIZEN OF [place] SPEAKING, UNDERSTANDS BASIC [place], ABLE TO PROVIDE INFORMATION NEEDED PER TRANSLATION. ORIENTED TO ROOM FACILITIES, CALL LIGHT USE INSTRUCTED WELL UNDERSTOOD. PLAN OF CARE AND MEDICATION REGIMEN DISCUSSED WITH PATIENT, APPEARS TO UNDERSTAND. TELE SHOWING NSR, NO CP OF THIS TIME, CONTINUED MONITORING.
[2021-07-07 20:32] VITALS: BP 187/88
[2021-07-07 20:47] VITALS: BP 187/88
--- NOTE | 2021-07-07 22:40 | NUR ---
TELERN BS WAS 127 NO COVERAGE. SNACKS PROVIDED ATE WELL.. KEPT COMFORTABLE. PAINFREE
[2021-07-08] VITALS (8 sets, daily range): BP systolic 131–212; BP diastolic 72–105
[2021-07-08] MEDS ORDERED: CLONIDINE HCL 0.1 MG TABLET PO PRN (01:00)
[2021-07-08] MEDS ORDERED: hydrALAZINE HCL IV 20 MG VIAL ONE (01:23)
[2021-07-08] MEDS: hydrALAZINE HCL IV 20 MG VIAL IV PRN (01:29)
--- NOTE | 2021-07-08 02:56 | NUR ---
TELERN OOB ON A CHAIR REQUESTED, ASSISTED, LOWER EXT VERY WEAK. CALL LIGHT WITHIN REACH, REMINDED TO CALL STAFF BEFORE GOING BACK TO BED. KEPT COMFORTABLE. WANTED TO SIT ON THE CHAIR FOR AWHILE. SAFETY PRECAUTIONS INSTRUCTED, WELL UNDERSTOOD.
--- NOTE | 2021-07-08 06:30 | NUR ---
TELERN SEEN BY DR. VALENCIA . BS 121 NO COVERAGE.
[2021-07-08 06:47] LABS: BASOPHILS # (AUTO) 0.1 K/uL (0.0-0.2); BASOPHILS % (AUTO) 1.2 % (0.0-2.0); EOSINOPHILS % (AUTO) 6.6 % (0.0-6.0); HEMATOCRIT 42 % (39-51); LYMPHOCYTES # (AUTO) 0.5 K/uL (0.8-4.8); LYMPHOCYTES % (AUTO) 10.8 % (20.0-44.0); MEAN CORPUSCULAR HGB CONC 34 g/dl (31.0-36.0); MEAN CORPUSCULAR VOLUME 101 fL (80-96); MONOCYTES # (AUTO) 0.4 K/uL (0.1-1.30); NEUTROPHILS # (AUTO) 3.2 K/uL (1.8-8.9); NEUTROPHILS % (AUTO) 73.4 % (43.0-81.0); PLATELET COUNT (AUTO) 110 K/uL (150-450); RED BLOOD CELL COUNT(AUTO) 4.14 MIL/uL (4.5-6.0); WHITE BLOOD COUNT (AUTO) 4.4 K/uL (4.3-11.0)
[2021-07-08 07:18] LABS: CALCIUM, SERUM 9.1 mg/dL (8.5-10.1); CREATININE 5.3 mg/dL (0.6-1.3); MAGNESIUM 2.6 mg/dL (1.8-2.4); PHOSPHORUS 3.3 mg/dL (2.5-4.9); POTASSIUM 4.3 mmol/L (3.5-5.1)
[2021-07-08] MEDS: BLOOD SUGAR DIAGNOSTIC 1 EACH STRIP IN SCH ×4 (07:39→21:50)
--- NOTE | 2021-07-08 07:58 | NUR ---
CHIEF KNOWLEDGE OFFICER OPENING NOTES RECEIVED PT AWAKE IN BED IN NO ACUTE SIGNS OF DISTRESS. ALERT/ORIENTED X4. RUSSIAN SPEAKING AND UNDERSTANDS BASIC POLISH, DENIES PAIN OR ANY DISCOMFORTS AT THIS TIME. ON 02 VIA N/C AT 2LPM, TOLERATING WELL WITH NO SOB NOTED. PT ON TELE-MONITOR WITH CURRENT READING OF NSR, HR ON THE 90'S, NO C/O OF CHEST PAIN OR ANY CARDIAC DISTRESS VOICED. PT WITH LFA AV FISTULA WITH POSITIVE BRUIT AND SHRILL NOTED. IV ACCESS ON RAC G#20 INTACT AND PATENT. SAFETY MEASURES IN PLACED: BED IN LOWEST LOCKED POSITION WITH SIDE-RAILS UP X2. CALL LIGHT AND BEDSIDE TABLE W/IN EASY REACH OF PT. WILL CONTINUE TO MONITOR PT.
[2021-07-08] MEDS ORDERED: NIFEdipine XL (30MG) 30 MG TAB PO SCH (09:00)
[2021-07-08] MEDS ORDERED: AMLODIPINE BESYLATE 10 MG TABLET PO SCH (09:00)
[2021-07-08] MEDS ORDERED: LINAGLIPTIN 5 MG TABLET PO SCH (09:00)
[2021-07-08] MEDS: ATORVASTATIN 10 MG TABLET PO SCH (09:27)
[2021-07-08] MEDS: NIFEdipine XL (30MG) 30 MG TAB PO SCH (09:27)
[2021-07-08] MEDS: LABETALOL HCL (100MG) 100 MG TABLET PO SCH ×2 (09:27→16:42)
[2021-07-08] MEDS: ASPIRIN 81 MG TAB.CHEW PO SCH (09:28)
[2021-07-08] MEDS: ISOSORBIDE DINITRATE (20MG) 20 MG TABLET PO SCH ×2 (09:28→16:42)
[2021-07-08] MEDS: PIOGLITAZONE HCL 15 MG TABLET PO SCH (09:28)
[2021-07-08] MEDS: hydrALAZINE HCL 50 MG TABLET PO SCH ×3 (09:29→16:43)
[2021-07-08] MEDS: PANTOPRAZOLE 40 MG TABLET.DR PO SCH (09:29)
[2021-07-08] MEDS: CALCIUM ACETATE 667 MG CAP/TAB PO SCH ×3 (09:31→17:32)
[2021-07-08] MEDS ORDERED: MORPHINE SULFATE INJ 2 MG/ML DISP.SYRIN IV PRN (12:00)
[2021-07-08] MEDS: INSULIN REGULAR, HUMAN 100 UNIT/ML 3 ML VIAL SQ PRN ×3 (12:07→21:52)
[2021-07-08] MEDS: CEFTRIAXONE 1 G in IV D5W 50 ML IV SCH (16:46)
[2021-07-08] MEDS: DOXAZOSIN MESYLATE (4 MG) 4 MG TABLET PO SCH (17:32)
[2021-07-08] MEDS: MINOXIDIL (2.5MG) 2.5 MG TABLET PO SCH (17:33)
--- NOTE | 2021-07-08 18:35 | NUR ---
LEGISLATIVE DIRECTOR CLOSING NOTES PT AWAKE AND RESTING, WATCHING TV AT THIS TIME AT MODERATE HIGH BACKREST POSITION. A/O X4. CZECH SPEAKING AND UNDERSTANDS BASIC GAMBIAN. ON 02 VIA N/C AT 2LPM, TOLERATING WELL WITH NO SOB NOTED DURING THE DAY. TELE-MONITOR SHOWS CURRENT READING OF NSR, HR ON THE 90'S, N/C CARDIAC DISTRESS VOICED. L AV FISTULA WITH POSITIVE BRUIT AND SHRILL NOTED. IV ACCESS ON RAC G#20 INTACT, PATENT AND FLUSHES WELL. ALL NEEDS AND CARE ATTENDED WELL. SAFETY MEASURES IN PLACED: BED IN LOWEST LOCKED POSITION WITH SIDE-RAILS UP X2. CALL LIGHT AND BEDSIDE TABLE W/IN EASY REACH OF PT. WILL ENDORSE TRACEY TO [employer]LL[employer] CAPTAIN NURSE.
--- NOTE | 2021-07-08 19:16 | NUR ---
CONTINUITY OF CARE Patient in bed, awake. On supplemental Oxygen 2L NC. Oxygen sat 96%. Sinus rhythm in the Tele monitor. Denies chest pain. LFA AV Fistula no bleeding. Will cont to provide care. Call light within reach.
[2021-07-09] VITALS: BP 138/71
[2021-07-09 04:00] VITALS: BP 128/59
--- NOTE | 2021-07-09 05:39 | NUR ---
END OF SHIFT REPORT Patient is A/O x3. Oxygen support 2L NC. Oxygen sat 94%. Sinus Rhythm in the Tele monitor. No c/o chest pain. No acute respiratory distress. On IV abx. Afebrile. Plan for dialysis treatment. Will endorse to oncoming RN.
[2021-07-09] MEDS: BLOOD SUGAR DIAGNOSTIC 1 EACH STRIP IN SCH ×4 (05:55→21:54)
[2021-07-09] MEDS: INSULIN REGULAR, HUMAN 100 UNIT/ML 3 ML VIAL SQ PRN ×2 (05:56→11:55)
[2021-07-09 07:29] LABS: BASOPHILS % (AUTO) 1.3 % (0.0-2.0); EOSINOPHILS % (AUTO) 6.3 % (0.0-6.0); HEMATOCRIT 38 % (39-51); HEMOGLOBIN 12.8 g/dL (13.5-17.5); LYMPHOCYTES # (AUTO) 0.8 K/uL (0.8-4.8); LYMPHOCYTES % (AUTO) 20.8 % (20.0-44.0); MEAN CORPUSCULAR HGB CONC 34 g/dl (31.0-36.0); MEAN CORPUSCULAR VOLUME 101 fL (80-96); MONOCYTES # (AUTO) 0.5 K/uL (0.1-1.30); MONOCYTES % (AUTO) 12.4 % (2.0-12.0); NEUTROPHILS # (AUTO) 2.2 K/uL (1.8-8.9); NEUTROPHILS % (AUTO) 59.2 % (43.0-81.0); PLATELET COUNT (AUTO) 110 K/uL (150-450); RED BLOOD CELL COUNT(AUTO) 3.76 MIL/uL (4.5-6.0); WHITE BLOOD COUNT (AUTO) 3.7 K/uL (4.3-11.0)
[2021-07-09 07:49] LABS: ALBUMIN 3.2 g/dL (3.4-5.0); BILIRUBIN,TOTAL 0.6 mg/dL (0.2-1.0); CALCIUM, SERUM 9.9 mg/dL (8.5-10.1); CREATININE 6.2 mg/dL (0.6-1.3); MAGNESIUM 2.8 mg/dL (1.8-2.4); PHOSPHORUS 3.5 mg/dL (2.5-4.9); POTASSIUM 4.7 mmol/L (3.5-5.1); TOTAL PROTEIN, SERUM 8.2 g/dL (6.4-8.2)
[2021-07-09 08:00] VITALS: BP 150/76
[2021-07-09] MEDS: ASPIRIN 81 MG TAB.CHEW PO SCH (09:27)
[2021-07-09] MEDS: LABETALOL HCL (100MG) 100 MG TABLET PO SCH ×2 (09:27→17:47)
[2021-07-09] MEDS: hydrALAZINE HCL 50 MG TABLET PO SCH ×3 (09:27→17:45)
[2021-07-09] MEDS: ATORVASTATIN 10 MG TABLET PO SCH (09:27)
[2021-07-09] MEDS: MINOXIDIL (2.5MG) 2.5 MG TABLET PO SCH (09:27)
[2021-07-09] MEDS: ISOSORBIDE DINITRATE (20MG) 20 MG TABLET PO SCH ×2 (09:28→17:46)
[2021-07-09] MEDS: PIOGLITAZONE HCL 15 MG TABLET PO SCH (09:32)
[2021-07-09] MEDS: CALCIUM ACETATE 667 MG CAP/TAB PO SCH ×3 (09:32→17:45)
[2021-07-09] MEDS: NIFEdipine XL (30MG) 30 MG TAB PO SCH (09:37)
[2021-07-09] MEDS: PANTOPRAZOLE 40 MG TABLET.DR PO SCH (09:37)
[2021-07-09] MEDS ORDERED: IV NS 0.9% 250 ML IV ONE (14:00)
[2021-07-09] MEDS ORDERED: NITROGLYCERIN 0.4 MG/TAB BOTTLE ONE (14:00)
[2021-07-09] MEDS ORDERED: METOPROLOL TARTRATE INJ 5 MG/5 ML AMPUL ONE ×3 (14:00→14:44)
[2021-07-09] MEDS ORDERED: CT SWABBABLE VALVE TRANS SET 1 EA INFUS.SET MC ONE (14:00)
[2021-07-09] MEDS ORDERED: IOHEXOL-350 100 ML VIAL IV ONE (14:00)
[2021-07-09] MEDS: METOPROLOL TARTRATE INJ 5 MG/5 ML AMPUL IVP PRN ×10 (14:20→15:05)
[2021-07-09] MEDS ORDERED: NITROGLYCERIN 0.4 MG/TAB BOTTLE SL ONE (14:30)
--- NOTE | 2021-07-09 15:11 | NUR ---
Report given to primary care RN Post [facility]CA for Continuity of care. Patient transported back to Tele floor via gurney. VSS.
[2021-07-09 16:00] VITALS: BP 167/83
[2021-07-09] MEDS: DOXAZOSIN MESYLATE (4 MG) 4 MG TABLET PO SCH (17:47)
[2021-07-09] MEDS: CEFTRIAXONE 1 G in IV D5W 50 ML IV SCH (17:52)
--- NOTE | 2021-07-09 19:41 | NUR ---
RN OPENING NOTES RECEIVED PT IN BED, AWAKE WITH DIALYSIS AT BEDSIDE. AOx3. ON NC 2LPM AND TOLERATING WELL. NO SOB NOTED. NO S/SX OF RESPIRATORY DISTRESS NOTED. TELE MONITOR DETECTS SINUS RHYTHM WITH RATE OF 92. IV ACCESS IN RAC #18 AND LFA AV SHUNT. IV IS INTACT, PATENT, AND FLUSHING WELL. SAFETY PRECAUTIONS IN PLACE: BED IN LOWEST, LOCKED POSITION, BRAKES ON. SIDERAILS UPx2, AND BRAKES ON. TABLE AND CALL LIGHT WITHIN REACH. WILL CONTINUE TO MONITOR.
[2021-07-09 20:00] VITALS: BP 152/72
[2021-07-10] VITALS: BP 127/64
[2021-07-10 04:00] VITALS: BP 121/60
[2021-07-10] MEDS: BLOOD SUGAR DIAGNOSTIC 1 EACH STRIP IN SCH ×4 (06:53→21:51)
--- NOTE | 2021-07-10 06:57 | NUR ---
RN CLOSING NOTES PT IN BED, AWAKE. AOx4. ON NC 2LPM AND TOLERATING WELL. NO SOB NOTED. NO S/SX OF RESPIRATORY DISTRESS NOTED. TELE MONITOR DETECTS SINUS RHYTHM WITH RATE OF 92. IV ACCESS IN RAC #18 AND LFA AV SHUNT. IV IS INTACT, PATENT, AND FLUSHING WELL. ALL NEEDS MET. PT KEPT CLEAN AND DRY. SAFETY PRECAUTIONS IN PLACE: BED IN LOWEST, LOCKED POSITION, BRAKES ON. SIDERAILS UPx2, AND BRAKES ON. TABLE AND CALL LIGHT WITHIN REACH. WILL ENDORSE TO ONCOMING SHIFT FOR TRACEY.
[2021-07-10 07:00] LABS: CALCIUM, SERUM 8.9 mg/dL (8.5-10.1); CREATININE 4.3 mg/dL (0.6-1.3); POTASSIUM 4.2 mmol/L (3.5-5.1)
--- NOTE | 2021-07-10 07:30 | NUR ---
HOOKER OFF OPENING NOTES RECEIVED PATIENT ON BED AWAKE AND A/O X4. ON O2 AT 2LPM VIA NASAL CANNULA AT 2LPM TOLERATING WELL. NO SOB NOTED. NOT IN DISTRESS. WITH NO COMPLAINTS OF PAIN OR DISCOMFORT AT THIS TIME. ON TELE MONITOR CURRENTLY READING SINUS RHYTHM AT 82BPM. WITH IV ACCESS AT RIGHT AC G18 SALINE LOCKED, PATENT AND INTACT. SAFETY MEASURES IN PLACED. CALL LIGHT WITHIN REACH. BED ON LOWEST LOCKED POSITION, SIDE RAILS UP X2. WILL CONTINUE TO MONITOR.
[2021-07-10 08:00] VITALS: BP 177/89
[2021-07-10] MEDS: PANTOPRAZOLE 40 MG TABLET.DR PO SCH (09:13)
[2021-07-10] MEDS: NIFEdipine XL (30MG) 30 MG TAB PO SCH (09:13)
[2021-07-10] MEDS: MINOXIDIL (2.5MG) 2.5 MG TABLET PO SCH (09:14)
[2021-07-10] MEDS: LABETALOL HCL (100MG) 100 MG TABLET PO SCH ×2 (09:14→16:52)
[2021-07-10] MEDS: CALCIUM ACETATE 667 MG CAP/TAB PO SCH ×3 (09:14→17:09)
[2021-07-10] MEDS: ATORVASTATIN 10 MG TABLET PO SCH (09:14)
[2021-07-10] MEDS: hydrALAZINE HCL 50 MG TABLET PO SCH ×3 (09:14→16:52)
[2021-07-10] MEDS: ISOSORBIDE DINITRATE (20MG) 20 MG TABLET PO SCH ×2 (09:15→16:52)
[2021-07-10] MEDS: ASPIRIN 81 MG TAB.CHEW PO SCH (09:15)
[2021-07-10] MEDS: PIOGLITAZONE HCL 15 MG TABLET PO SCH (09:15)
[2021-07-10 16:00] VITALS: BP 149/79
[2021-07-10] MEDS: CEFTRIAXONE 1 G in IV D5W 50 ML IV SCH (16:50)
[2021-07-10] MEDS: DOXAZOSIN MESYLATE (4 MG) 4 MG TABLET PO SCH (17:10)
--- NOTE | 2021-07-10 19:09 | NUR ---
GREEN CHAIN PULLER CLOSING NOTES PATIENT RESTING ON BED AND A/O X4. ON ON AND OFF O2 AT VIA NASAL CANNULA AT 2LPM TOLERATING WELL. NO SOB NOTED. NOT IN DISTRESS. WITH NO COMPLAINTS OF PAIN OR DISCOMFORT AT THIS TIME. WITH IV ACCESS AT RIGHT AC G18 SALINE LOCKED, PATENT AND INTACT. DUE MEDS GIVEN. SAFETY MEASURES IN PLACED. CALL LIGHT WITHIN REACH. BED ON LOWEST LOCKED POSITION, SIDE RAILS UP X2. WILL ENDORSE TO NEXT SHIFT FOR TRACEY.
[2021-07-10 20:00] VITALS: BP 139/71
--- NOTE | 2021-07-10 20:04 | NUR ---
RN OPENING NOTES RECEIVED PT IN BED, AWAKE. AOx4. ON NC 2LPM AND TOLERATING WELL. NO SOB NOTED. NO S/SX OF RESPIRATORY DISTRESS NOTED. TELE MONITOR DETECTS SINUS RHYTHM WITH RATE OF 90s. IV ACCESS IN RAC #18 AND LFA AV SHUNT. IV IS INTACT, PATENT, AND FLUSHING WELL. SAFETY PRECAUTIONS IN PLACE: BED IN LOWEST, LOCKED POSITION, BRAKES ON. SIDERAILS UPx2, AND BRAKES ON. TABLE AND CALL LIGHT WITHIN REACH. WILL CONTINUE TO MONITOR.
[2021-07-11 06:38] LABS: BASOPHILS # (AUTO) 0.1 K/uL (0.0-0.2); BASOPHILS % (AUTO) 2.1 % (0.0-2.0); HEMATOCRIT 39 % (39-51); HEMOGLOBIN 12.8 g/dL (13.5-17.5); LYMPHOCYTES # (AUTO) 1.1 K/uL (0.8-4.8); LYMPHOCYTES % (AUTO) 24.8 % (20.0-44.0); MEAN CORPUSCULAR HGB CONC 33 g/dl (31.0-36.0); MEAN CORPUSCULAR VOLUME 99 fL (80-96); MONOCYTES # (AUTO) 0.7 K/uL (0.1-1.30); MONOCYTES % (AUTO) 15.9 % (2.0-12.0); NEUTROPHILS % (AUTO) 46.2 % (43.0-81.0); PLATELET COUNT (AUTO) 129 K/uL (150-450); RED BLOOD CELL COUNT(AUTO) 3.92 MIL/uL (4.5-6.0); WHITE BLOOD COUNT (AUTO) 4.3 K/uL (4.3-11.0)
[2021-07-11 07:09] LABS: CALCIUM, SERUM 9.1 mg/dL (8.5-10.1); CREATININE 5.9 mg/dL (0.6-1.3); POTASSIUM 4.3 mmol/L (3.5-5.1)
--- NOTE | 2021-07-11 07:25 | NUR ---
REPORT GIVEN. PT STABLE.
--- NOTE | 2021-07-11 07:38 | NUR ---
RN OPENING NOTES Patient seen comfortably lying in bed, no apparent distress noted, respirations even and unlabored, no SOB, denies any pain or discomfort at this time, no grimacing. Call light left within reach, safety precautions in place, brakes locked, side rails up X 2, will monitor closely for any changes.
[2021-07-11 08:52] VITALS: BP 127/82
[2021-07-11] MEDS: hydrALAZINE HCL 50 MG TABLET PO SCH ×3 (09:00→16:59)
[2021-07-11] MEDS: NIFEdipine XL (30MG) 30 MG TAB PO SCH (09:00)
[2021-07-11] MEDS: LABETALOL HCL (100MG) 100 MG TABLET PO SCH ×2 (09:00→16:59)
[2021-07-11] MEDS: MINOXIDIL (2.5MG) 2.5 MG TABLET PO SCH (09:00)
[2021-07-11] MEDS: ISOSORBIDE DINITRATE (20MG) 20 MG TABLET PO SCH ×2 (09:00→16:59)
[2021-07-11] MEDS: ACETYLCYSTEINE 10% SOLN 400 MG/4 ML VIAL NEB SCH ×3 (09:53→23:56)
[2021-07-11] MEDS: PANTOPRAZOLE 40 MG TABLET.DR PO SCH (10:15)
[2021-07-11] MEDS: CALCIUM ACETATE 667 MG CAP/TAB PO SCH ×3 (10:15→17:25)
[2021-07-11] MEDS: ATORVASTATIN 10 MG TABLET PO SCH (10:15)
[2021-07-11] MEDS: ASPIRIN 81 MG TAB.CHEW PO SCH (10:15)
[2021-07-11] MEDS: PIOGLITAZONE HCL 15 MG TABLET PO SCH (10:15)
--- NOTE | 2021-07-11 10:15 | NUR ---
Report given to Adonay MARIE for continuity of care.
--- NOTE | 2021-07-11 10:34 | NUR ---
m/s evaporative cooler installer: notes received pt in bed having hd tx at this time. no distress noted. instructed to call for assistance. will continue to monitor.
[2021-07-11 11:13] LABS: BAND % (MANUAL) 2 % (0.0-5.0); NEUTROPHILS % (MANUAL) 47 (42-76)
[2021-07-11 11:14] LABS: EOSINOPHILS % (MANUAL) 12 % (0-4); LYMPHOCYTES % (MANUAL) 25 % (16-48); MONOCYTES % (MANUAL) 14 % (0-11.0)
[2021-07-11] MEDS: BLOOD SUGAR DIAGNOSTIC 1 EACH STRIP IN SCH ×4 (11:46→23:08)
--- NOTE | 2021-07-11 13:00 | NUR ---
m/s exhibits coordinator: notes hd completed with 2000 removed per hd nurse, jeffery. well. no distress noted. will continue to monitor.
[2021-07-11 16:53] VITALS: BP 146/74
[2021-07-11] MEDS: DOXAZOSIN MESYLATE (4 MG) 4 MG TABLET PO SCH (17:00)
[2021-07-11] MEDS: CEFTRIAXONE 1 G in IV D5W 50 ML IV SCH (17:00)
--- NOTE | 2021-07-11 19:00 | NUR ---
m/s pai gow dealer: notes bedside report given to sidra (monica) for continuity of care.
--- NOTE | 2021-07-11 19:10 | NUR ---
RN NOTES: RECEIVED AWAKE ON BED, HER PRESENT AT BED SIDE, A/0X4, [facility] SPEAKING, ABLE TO MAKE NEEDS KNOWN, LFA- AV SHUNT, HD DONE TODAY OUTPUT 2 LITERS,RAC G#22, PER ENDORSEMENT, HOLD D/C PLAN, NO SOB, NO SIGN OF RESPIRATORY DISCOMFORT,ORIENTED TO UNIT AND STAFF. -FALL AND SAFETY PRECAUTION OBSERVE.BED LOW AND LOCKED CALL LIGHT KEPT WITHIN EASY EACH.
[2021-07-11 20:00] VITALS: BP 133/76
--- NOTE | 2021-07-11 23:06 | NUR ---
RN NOTES: 2200 BLOOD SUGAR CHECKED-76, GIVEN ORANGE JUICE, DRINK WELL TOLERATED. -WILL CONTINUE TO MONITOR FOR SIGN OF HYPER/HYPOGLYCEMIA
[2021-07-12] MEDS: hydrALAZINE HCL IV 20 MG VIAL IV PRN (03:42)
--- NOTE | 2021-07-12 03:48 | NUR ---
RN NOTES: PATIENT COMPLAINED HE HAS HEADACHE, HE ASKED FOR HIS BP TO BE CHECKED, BP-186/91, FEELING NAUSEATED, CHARGE NURSE NOTIFIED, PRN HYDRALAZINE 10 MG/0.5ML IV GIVEN, KEPT COMFORTABLE IN BED, KEPT CALL LIGHT WITHIN EASY REACH, ON CLOSE WATCH.
--- NOTE | 2021-07-12 07:41 | NUR ---
RN OPENING NOTES Patient seen comfortably lying in bed, no SOB, no apparent distress noted, breathing even and unlabored, no grimacing. Call light left within reach, safety precautions in place, brakes locked, side rails up X 2, will monitor closely for any changes.
[2021-07-12] MEDS: ACETYLCYSTEINE 10% SOLN 400 MG/4 ML VIAL NEB SCH ×3 (07:51→23:24)
--- NOTE | 2021-07-12 07:55 | NUR ---
RN NOTES: AWAKE IN BETWEEN, NO MORE HEADACHE, BLOOD SUGAR CHECKED-77, GIVEN ORANGE JUICE, NO LABS THIS MORNING, ENDORSED FOR CONTINUITY OF CARE.
[2021-07-12] MEDS: PIOGLITAZONE HCL 15 MG TABLET PO SCH (09:14)
[2021-07-12] MEDS: ISOSORBIDE DINITRATE (20MG) 20 MG TABLET PO SCH ×2 (09:14→16:36)
[2021-07-12] MEDS: ATORVASTATIN 10 MG TABLET PO SCH (09:14)
[2021-07-12] MEDS: ASPIRIN 81 MG TAB.CHEW PO SCH (09:14)
[2021-07-12] MEDS: NIFEdipine XL (30MG) 30 MG TAB PO SCH (09:15)
[2021-07-12] MEDS: hydrALAZINE HCL 50 MG TABLET PO SCH ×3 (09:15→16:36)
[2021-07-12] MEDS: LABETALOL HCL (100MG) 100 MG TABLET PO SCH ×2 (09:15→16:35)
[2021-07-12] MEDS: MINOXIDIL (2.5MG) 2.5 MG TABLET PO SCH (09:15)
[2021-07-12] MEDS: PANTOPRAZOLE 40 MG TABLET.DR PO SCH (09:40)
[2021-07-12] MEDS: CALCIUM ACETATE 667 MG CAP/TAB PO SCH ×3 (09:40→18:00)
[2021-07-12] MEDS: BLOOD SUGAR DIAGNOSTIC 1 EACH STRIP IN SCH ×4 (12:43→22:44)
[2021-07-12 16:00] VITALS: BP 167/81
[2021-07-12] MEDS: CEFTRIAXONE 1 G in IV D5W 50 ML IV SCH (16:37)
[2021-07-12] MEDS: INSULIN REGULAR, HUMAN 100 UNIT/ML 3 ML VIAL SQ PRN (17:26)
--- NOTE | 2021-07-12 19:41 | NUR ---
RN CLOSING NOTES Patient lying in bed, no shortness of breath, respirations even and unlabored, no apparent distress noted, denies any pain or discomfort, no grimacing, no s/s of fluid overload, no dizziness, no palpitations, no chest pain during shift. Routine medications given per MD order and tolerated well. No s/s of hypo or hyperglycemia, no tremors, no change in level of consciousness. Kept clean and dry, all needs attended, call light left within reach, safety precautions in place, brakes locked, frequent visual checks rendered, side rails up X 2, will endorse to next shift for continuity of care.
[2021-07-12] MEDS: DOXAZOSIN MESYLATE (4 MG) 4 MG TABLET PO SCH (20:03)
[2021-07-13] MEDS: ACETYLCYSTEINE 10% SOLN 400 MG/4 ML VIAL NEB SCH ×3 (06:59→23:22)
[2021-07-13 07:24] LABS: CALCIUM, SERUM 9.2 mg/dL (8.5-10.1); CREATININE 6.2 mg/dL (0.6-1.3); POTASSIUM 4.6 mmol/L (3.5-5.1)
--- NOTE | 2021-07-13 07:30 | NUR ---
MS RN CLOSING NOTE PATIENT SLEEPING IN BED, EASILY AWAKENED, ALERT/ORIENTED X 4, PT ABLE TO MAKE NEEDS KNOWN. PT STABLE ON RA, NO S/S OF DISTRESS OR SOB NOTED, BREATHING EVEN AND UNLABORED. MEDICATIONS GIVEN ORDERED, PT NEEDS MET, NO SIGNIFICANT CHANGES THROUGHOUT SHIFT, PT SLEPT THROUGH THE NIGHT. SAFETY MEASURES IN PLACE: CALL LIGHT WITHIN REACH, SIDE RAILS UP X 2, BED LOCKED IN LOW POSITION, BED ALARM ON. ENDORSED TO DAY SHIFT NURSE FOR CONTINUITY OF CARE
--- NOTE | 2021-07-13 07:38 | NUR ---
RN OPENING NOTES Patient seen comfortably lying in bed, no apparent distress noted, respirations even and unlabored, no shortness of breath, denies any pain or discomfort at this time, no grimacing. Call light left within reach, safety precautions in place, brakes locked, side rails up X 2, will monitor closely for any changes.
[2021-07-13 08:00] VITALS: BP 148/75
[2021-07-13] MEDS: BLOOD SUGAR DIAGNOSTIC 1 EACH STRIP IN SCH ×4 (08:06→23:12)
[2021-07-13] MEDS: NIFEdipine XL (30MG) 30 MG TAB PO SCH (09:27)
[2021-07-13] MEDS: PIOGLITAZONE HCL 15 MG TABLET PO SCH (09:27)
[2021-07-13] MEDS: ATORVASTATIN 10 MG TABLET PO SCH (09:27)
[2021-07-13] MEDS: CALCIUM ACETATE 667 MG CAP/TAB PO SCH ×3 (09:27→17:39)
[2021-07-13] MEDS: PANTOPRAZOLE 40 MG TABLET.DR PO SCH (09:27)
[2021-07-13] MEDS: hydrALAZINE HCL 50 MG TABLET PO SCH ×3 (09:28→17:40)
[2021-07-13] MEDS: ISOSORBIDE DINITRATE (20MG) 20 MG TABLET PO SCH ×2 (09:28→17:41)
[2021-07-13] MEDS: LABETALOL HCL (100MG) 100 MG TABLET PO SCH ×2 (09:29→17:41)
[2021-07-13] MEDS: MINOXIDIL (2.5MG) 2.5 MG TABLET PO SCH (09:29)
[2021-07-13] MEDS: ASPIRIN 81 MG TAB.CHEW PO SCH (09:30)
[2021-07-13 16:00] VITALS: BP 112/63
[2021-07-13] MEDS: CEFTRIAXONE 1 G in IV D5W 50 ML IV SCH (17:38)
[2021-07-13] MEDS: DOXAZOSIN MESYLATE (4 MG) 4 MG TABLET PO SCH (17:40)
--- NOTE | 2021-07-13 19:45 | NUR ---
RN CLOSING NOTES Patient lying in bed, breathing even and unlabored, no apparent distress noted, no shortness of breath, denies any pain or discomfort, no grimacing, no s/s of fluid overload, no chest pain, no palpitations, no dizziness during shift. Routine medications given per MD order and tolerated well. No s/s of hypo or hyperglycemia, no change in level of consciousness, no tremors. All needs attended, kept clean and dry, call light left within reach, safety precautions in place, brakes locked, frequent visual checks rendered, side rails up X 2, will endorse to next shift for continuity of care.
[2021-07-13 20:00] VITALS: BP 143/72
[2021-07-14] MEDS: BLOOD SUGAR DIAGNOSTIC 1 EACH STRIP IN SCH ×2 (07:09→12:34)
--- NOTE | 2021-07-14 07:30 | NUR ---
MS RN OPENING NOTES RECEIVED PATIENT ON BED AWAKE AND A/O X4. ON ROOM AIR TOLERATING WELL.NO SOB NOTED. NOT IN DISTRESS. WITH NO COMPLAINTS OF PAIN OR DISCOMFORT AT THIS TIME. WITH IV ACCESS RIGHT AC G22 SALINE LOCKED, PATENT AND INTACT. WITH LEFT FOREARM AV SHUNT FOR HEMODIALYSIS WITH DRY AND INTACT DRESSING. SAFETY MEASURES IN PLACED. CALL LIGHT WITHIN REACH. BED ON LOWEST LOCKED POSITION, SIDE RAILS UP X2. WILL CONTINUE TO MONITOR.
[2021-07-14 08:00] VITALS: BP 131/65
[2021-07-14] MEDS: ACETYLCYSTEINE 10% SOLN 400 MG/4 ML VIAL NEB SCH (08:09)
[2021-07-14] MEDS: PANTOPRAZOLE 40 MG TABLET.DR PO SCH (08:43)
[2021-07-14] MEDS: ATORVASTATIN 10 MG TABLET PO SCH (08:44)
[2021-07-14] MEDS: PIOGLITAZONE HCL 15 MG TABLET PO SCH (08:44)
[2021-07-14] MEDS: ASPIRIN 81 MG TAB.CHEW PO SCH (08:44)
[2021-07-14] MEDS: CALCIUM ACETATE 667 MG CAP/TAB PO SCH ×2 (08:45→13:46)
[2021-07-14] MEDS: hydrALAZINE HCL 50 MG TABLET PO SCH ×2 (09:00→13:46)
[2021-07-14] MEDS: ISOSORBIDE DINITRATE (20MG) 20 MG TABLET PO SCH (09:00)
[2021-07-14] MEDS: MINOXIDIL (2.5MG) 2.5 MG TABLET PO SCH (09:00)
[2021-07-14] MEDS: LABETALOL HCL (100MG) 100 MG TABLET PO SCH (09:00)
[2021-07-14] MEDS: NIFEdipine XL (30MG) 30 MG TAB PO SCH (09:00)
[2021-07-14 13:46] VITALS: BP 150/90
--- NOTE | 2021-07-14 15:04 | NUR ---
MS FORESTRY SCIENTIST NOTES PATIENT WAS SEEN BY DR. ANTOINE AND ORDERED PATIENT FOR DISCHARGE TO SNF. DISCHARGE INSTRUCTIONS AND EDUCATION PROVIDED TO PATIENT AND EXPLAINED MEDICATIONS AND PRESCRIPTIONS. PATIENT VERBALIZED UNDERSTANDING. DISCHARGE FORM AND BELONGINGS LIST FORM SIGNED BY PATIENT. ALL BELONGINGS ACCOUNTED FOR. NAME WRIST BAND AND IV LINE REMOVED. CALLED [facility] AND GIVEN REPORT. PATIENT WAS PICKED UP BY AMBULANCE PERSONNEL IN STABLE CONDITION. MD AND CHARGE NURSE ARE AWARE OF THE DISCHARGE.
== END 2021-07-14 15:00 | DRG 280 ==
LOC: ER 09:19 → TRANSITION 10:56 → TELE 19:16 → MED 07-10 09:30
PROVIDERS: ADMIT Nurse Practitioner Acute Care; ATTEND Nurse Practitioner Acute Care
PROC: 5A1D70Z Performance of Urinary Filtration, Intermittent, Less than 6 Hours Per Day (ICD-10-PCS; principal; 2021-07-09)
PROC: B2211ZZ Computerized Tomography (CT Scan) of Multiple Coronary Arteries using Low Osmolar Contrast (ICD-10-PCS; 2021-07-09)
DX: I21.4 Non-ST elevation (NSTEMI) myocardial infarction (principal); J15.6 Pneumonia due to other Gram-negative bacteria; N18.6 End stage renal disease; I12.0 Hypertensive chronic kidney disease with stage 5 chronic kidney disease or end stage renal disease; J90 Pleural effusion, not elsewhere classified; J98.11 Atelectasis; Z99.2 Dependence on renal dialysis; I48.0 Paroxysmal atrial fibrillation; E11.22 Type 2 diabetes mellitus with diabetic chronic kidney disease; Z20.822 Contact with and (suspected) exposure to COVID-19; I25.10 Atherosclerotic heart disease of native coronary artery without angina pectoris; I16.0 Hypertensive urgency; I67.2 Cerebral atherosclerosis; E78.5 Hyperlipidemia, unspecified; Z79.84 Long term (current) use of oral hypoglycemic drugs; Z86.79 Personal history of other diseases of the circulatory system; Z79.899 Other long term (current) drug therapy; K80.20 Calculus of gallbladder without cholecystitis without obstruction; N27.0 Small kidney, unilateral; N28.1 Cyst of kidney, acquired; D69.6 Thrombocytopenia, unspecified; R16.1 Splenomegaly, not elsewhere classified
CPT/HCPCS: 36415; 70450-TC; 71045-TC; 75574; 76700-TC; 80048-TC; 80053-TC; 80076-TC; 82962-TC; 83735-TC; 84100-TC; 84484-TC; 85025-TC; 85730-TC; 86706; 87081-TC; 87340; 90935-TC; 93307-TC; 94799-TC; G0378; J0360; J0696; J2405; J3490; J7030; J7050; J7060; Q9967